=== PATIENT | male | born 1945 | race Caucasian/White ===

== ENCOUNTER 2017-10-05 10:54 | Inpatient (IN) ==
[2017-10-05] MEDS ORDERED: ACETAMINOPHEN 325 MG TABLET PO PRN (12:25)
[2017-10-05] MEDS ORDERED: ALBUTEROL 2.5 MG/3 ML NEB RESP TX PRN (12:29)
[2017-10-05] MEDS ORDERED: DEXTROSE 50% 25 GM/50 ML VIAL IV PRN (12:47)
[2017-10-05] MEDS ORDERED: GLUCAGON 1 MG VIAL IM PRN (12:47)
[2017-10-05] MEDS ORDERED: MORPHINE 4 MG/1 ML VIAL IV PRN (12:47)
[2017-10-05] MEDS ORDERED: ONDANSETRON 4 MG/2 ML VIAL IV PRN (12:48)
[2017-10-05] MEDS ORDERED: MAGNESIUM SULF RIDER 2 GM in PREMIX 1 EACH IV PRN (12:48)
[2017-10-05] MEDS ORDERED: MAGNESIUM SULF RIDER 4 GM in PREMIX 1 EACH IV PRN (12:48)
[2017-10-05] MEDS ORDERED: POTASSIUM CHLORIDE 20 MEQ TABLET PO PRN (12:48)
[2017-10-05] MEDS ORDERED: FUROSEMIDE 40 MG/4 ML VIAL IV SCH (13:00)
[2017-10-05 13:17] LABS: Basophils # 0.1 10*3/uL (0.0-0.2); Basophils % 0.2 % (0.0-0.8); Hematocrit 31.6 VOL% (42.0-52.0); Hemoglobin 10.6 GM/DL (14.0-18.0); Immature Granulocytes % 1.3 %; Immature Granulocytes Absolute 0.29 #; Lymphocytes # 0.7 10*3/uL (1.4-4.0); Mean Corpuscular HGB Conc 33.5 GM/DL (32-36); Mean Corpuscular Hemoglobin 32 PG (27-34); Mean Corpuscular Volume 96.3 FL (87-102); Mean Platelet Volume 10.2 FL (9.6-12.0); Monocytes % 8.8 % (1.7-12.7); Neutrophils # 19.7 10*3/uL (1.4-7.4); Neutrophils % 86.7 % (38.7-73.9); Platelet Count 288 T/CUMM (130-400); Red Blood Count 3.28 MC/CUMM (3.8-5.5); Red Cell Distribution Width 15.3 % (9.3-17.3); White Blood Count 22.7 T/CUMM (4-12)
[2017-10-05] MEDS: CARVEDILOL 3.125 MG TABLET PO SCH ×2 (13:27→20:30)
[2017-10-05] MEDS ORDERED: ASPIRIN CHEW 81 MG TABLET PO SCH (13:30)
[2017-10-05 13:35] LABS: Albumin 2.2 G/DL (3.4-5.0); Bilirubin,Total 2.1 MG/DL (0.2-1.0); Calcium 8.5 MG/DL (8.5-10.1); Potassium 3.7 MMOL/L (3.5-5.1); Total Protein 6.3 G/DL (6.4-8.3)
[2017-10-05 13:41] LABS: Lactic Acid 3.8 MMOL/L (0.4-2.0)
[2017-10-05 13:44] LABS: Apearance,Urine CLOUDY (Clear); Bacteria,Urine Few /HPF (Few); Bilirubin,Urine Small mg/dL (Negative); Blood, Urine Moderate mg/dL (Negative); Glucose,Urine (UA) 50 mg/dL (Negative); Hyaline Casts,Urine 24 /LPF (0-3); Ketones,Urine Negative (Negative); Mucus,Urine Occasional /LPF (Occasional); Nitrite,Urine Negative (Negative); Protein,Urine 100 MG/DL; RBC,Urine 90 /HPF (0-4); Urine Color Amber (Yellow); Urine Specific Gravity 1.019 (1.001-1.035); WBC,Urine 4 /HPF (0-6)
[2017-10-05] MEDS: PANTOPRAZOLE 40 MG VIAL IV SCH (13:46)
[2017-10-05] MEDS: LEVOFLOXACIN INJ 750 MG in PREMIX 1 EACH IV SCH (13:47)
[2017-10-05] MEDS: ENOXAPARIN 120 MG/0.8 ML SYRINGE SUBCUT SCH (13:47)
[2017-10-05] MEDS: ASPIRIN 325 MG TABLET PO SCH (13:47)
[2017-10-05] MEDS: ALBUTEROL/IPRATROPIUM 3 ML NEB RESP TX SCH ×2 (13:50→19:01)
[2017-10-05 13:57] LABS: ABG Base Excess -1.2 MMOL/L (-2.5-2.5); ABG HCO3 23.3 MMOL/L (20-26); ABG Oxygen Saturation 91.7 % (95-100); ABG PCO2 41.4 MM HG (35-48); ABG PH 7.371 (7.35-7.45); ABG PO2 67.3 MM HG (80-95); ABG TCO2 21.8 MMOL/L (23-27)
[2017-10-05] MEDS: INSULIN REGULAR 100 UNIT/ML SUBCUT SCH ×2 (15:56→20:36)
[2017-10-05] MEDS: FUROSEMIDE 40 MG/4 ML VIAL IV SCH ×2 (16:04→21:57)
[2017-10-05] MEDS: DOBUTamine 500 MG/250 ML PREMIX IV SCH (16:04)
[2017-10-05] MEDS: INSULIN LISPRO 100 UNIT/ML SUBCUT SCH (16:56)
[2017-10-05] MEDS: AZTREONAM 2,000 MG in SYRINGE 1 EACH IV SCH (17:20)
[2017-10-05] MEDS: NITROGLYCERIN 2% OINT 1 INCH/GM PACK TOP SCH ×2 (17:38→23:44)
[2017-10-05] MEDS: MORPHINE ER 15 MG TABLET PO SCH (20:54)
[2017-10-05] MEDS: sitaGLIPtin 25 MG TABLET PO SCH (20:54)
[2017-10-05] MEDS: GABAPENTIN 300 MG CAPSULE PO SCH (20:54)
[2017-10-05] MEDS: ROSUVASTATIN 20 MG TABLET PO SCH (20:54)
[2017-10-05] MEDS: metFORMIN 500 MG TABLET PO SCH (20:55)
[2017-10-05 20:59] LABS: Band Neutrophils 1 % (0-10); Lymphocytes 4 % (20-55); Platelet Estimate Normal; Segmented Neutrophils 93 % (50-85); Total Cells Counted 100
[2017-10-05] MEDS ORDERED: INSULIN GLARGINE 100 UNIT/ML SUBCUT SCH (21:00)
[2017-10-06] MEDS: AZTREONAM 2,000 MG in SYRINGE 1 EACH IV SCH ×3 (00:06→17:18)
[2017-10-06] MEDS: ALBUTEROL/IPRATROPIUM 3 ML NEB RESP TX SCH ×4 (00:16→18:59)
[2017-10-06] MEDS: ENOXAPARIN 120 MG/0.8 ML SYRINGE SUBCUT SCH ×2 (01:23→14:05)
[2017-10-06] MEDS: FUROSEMIDE 40 MG/4 ML VIAL IV SCH ×3 (04:16→21:57)
[2017-10-06] MEDS: DOBUTamine 500 MG/250 ML PREMIX IV SCH (04:16)
[2017-10-06] MEDS: NITROGLYCERIN 2% OINT 1 INCH/GM PACK TOP SCH ×3 (05:51→18:46)
[2017-10-06 06:36] LABS: Basophils % 0.2 % (0.0-0.8); Eosinophils % 0.2 % (0.00-10.9); Hematocrit 30.6 VOL% (42.0-52.0); Hemoglobin 10.2 GM/DL (14.0-18.0); Immature Granulocytes % 1.3 %; Immature Granulocytes Absolute 0.23 #; Lymphocytes # 0.8 10*3/uL (1.4-4.0); Lymphocytes % 4.4 % (21.2-54.2); Mean Corpuscular HGB Conc 33.3 GM/DL (32-36); Mean Corpuscular Hemoglobin 32 PG (27-34); Mean Platelet Volume 10.1 FL (9.6-12.0); Monocytes # 1.6 10*3/uL (0.11-0.8); Monocytes % 9.4 % (1.7-12.7); Neutrophils # 14.7 10*3/uL (1.4-7.4); Neutrophils % 84.5 % (38.7-73.9); Platelet Count 271 T/CUMM (130-400); Red Blood Count 3.22 MC/CUMM (3.8-5.5); Red Cell Distribution Width 15.3 % (9.3-17.3); White Blood Count 17.4 T/CUMM (4-12)
[2017-10-06 07:08] LABS: Calcium 8.1 MG/DL (8.5-10.1); Osmolality,Calculated 289.5 MOS/KG (273-304); Potassium 3.3 MMOL/L (3.5-5.1); Total Protein 5.9 G/DL (6.4-8.3)
[2017-10-06 07:09] LABS: Risk Ratio 9.19; VLDL CHOLESTEROL 29.4 MG/DL
[2017-10-06 07:10] LABS: Band Neutrophils 3 % (0-10); Lymphocytes 4 % (20-55); Segmented Neutrophils 88 % (50-85); Total Cells Counted 100
[2017-10-06 07:11] LABS: Hypochromasia 1+
[2017-10-06] MEDS: INSULIN LISPRO 100 UNIT/ML SUBCUT SCH ×2 (07:34→11:22)
[2017-10-06] MEDS: INSULIN REGULAR 100 UNIT/ML SUBCUT SCH ×4 (07:34→21:50)
[2017-10-06] MEDS ORDERED: hydroCHLOROthiazide 25 MG TABLET PO SCH (09:00)
[2017-10-06] MEDS ORDERED: DOXAZOSIN 1 MG TABLET PO SCH (09:00)
[2017-10-06] MEDS ORDERED: LOSARTAN 50 MG TABLET PO SCH (09:00)
[2017-10-06] MEDS: GABAPENTIN 300 MG CAPSULE PO SCH (09:37)
[2017-10-06] MEDS: MORPHINE ER 30 MG TABLET PO SCH (09:37)
[2017-10-06] MEDS: LEVOTHYROXINE 50 MCG TABLET PO SCH (09:38)
[2017-10-06] MEDS: PARoxetine 20 MG TABLET PO SCH (09:38)
[2017-10-06] MEDS: FOLIC ACID 1 MG TABLET PO SCH (09:38)
[2017-10-06] MEDS: ASPIRIN 325 MG TABLET PO SCH (09:38)
[2017-10-06] MEDS: metFORMIN 500 MG TABLET PO SCH (09:40)
[2017-10-06] MEDS: CARVEDILOL 3.125 MG TABLET PO SCH ×2 (09:41→22:52)
[2017-10-06] MEDS: BICALUTAMIDE 50 MG TABLET PO SCH (09:43)
[2017-10-06] MEDS: sitaGLIPtin 25 MG TABLET PO SCH (09:51)
[2017-10-06] MEDS: POTASSIUM CHLORIDE 20 MEQ TABLET PO PRN ×2 (11:00→11:54)
[2017-10-06] MEDS: PANTOPRAZOLE 40 MG VIAL IV SCH (12:36)
[2017-10-06] MEDS: LEVOFLOXACIN INJ 750 MG in PREMIX 1 EACH IV SCH (14:05)
[2017-10-06] MEDS: MORPHINE ER 15 MG TABLET PO SCH (21:56)
[2017-10-06] MEDS: ROSUVASTATIN 20 MG TABLET PO SCH (21:56)
[2017-10-07] MEDS: ALBUTEROL/IPRATROPIUM 3 ML NEB RESP TX SCH ×4 (00:38→19:21)
[2017-10-07] MEDS: AZTREONAM 2,000 MG in SYRINGE 1 EACH IV SCH ×2 (01:30→09:55)
[2017-10-07] MEDS: NITROGLYCERIN 2% OINT 1 INCH/GM PACK TOP SCH ×4 (01:30→18:08)
[2017-10-07] MEDS: ENOXAPARIN 120 MG/0.8 ML SYRINGE SUBCUT SCH ×2 (01:38→13:53)
[2017-10-07 02:52] LABS: ABG Base Excess -0.4 MMOL/L (-2.5-2.5); ABG Oxygen Saturation 94.1 % (95-100); ABG PH 7.358 (7.35-7.45); ABG PO2 73.9 MM HG (80-95); Allen Test Positive
[2017-10-07 05:47] LABS: Basophils % 0.2 % (0.0-0.8); Eosinophils # 0.1 10*3/uL (0.0-0.87); Eosinophils % 0.8 % (0.00-10.9); Hematocrit 30.3 VOL% (42.0-52.0); Hemoglobin 10.2 GM/DL (14.0-18.0); Immature Granulocytes % 1.1 %; Immature Granulocytes Absolute 0.14 #; Lymphocytes # 0.6 10*3/uL (1.4-4.0); Lymphocytes % 4.2 % (21.2-54.2); Mean Corpuscular HGB Conc 33.7 GM/DL (32-36); Mean Corpuscular Hemoglobin 32 PG (27-34); Mean Corpuscular Volume 95.3 FL (87-102); Mean Platelet Volume 10.3 FL (9.6-12.0); Monocytes # 1.2 10*3/uL (0.11-0.8); Monocytes % 9.1 % (1.7-12.7); Neutrophils % 84.6 % (38.7-73.9); Platelet Count 261 T/CUMM (130-400); Red Blood Count 3.18 MC/CUMM (3.8-5.5); Red Cell Distribution Width 15.3 % (9.3-17.3)
[2017-10-07 06:12] LABS: Hypochromasia 1+; Lymphocytes 2 % (20-55); Platelet Estimate Adequate; Segmented Neutrophils 95 % (50-85); Total Cells Counted 100
[2017-10-07 06:13] LABS: Calcium 7.7 MG/DL (8.5-10.1); Osmolality,Calculated 296.7 MOS/KG (273-304); Potassium 3.5 MMOL/L (3.5-5.1)
[2017-10-07] MEDS: INSULIN REGULAR 100 UNIT/ML SUBCUT SCH ×4 (08:18→22:27)
[2017-10-07] MEDS: MORPHINE ER 30 MG TABLET PO SCH (08:18)
[2017-10-07] MEDS: PARoxetine 20 MG TABLET PO SCH (11:14)
[2017-10-07] MEDS: FOLIC ACID 1 MG TABLET PO SCH (11:14)
[2017-10-07] MEDS: ASPIRIN 325 MG TABLET PO SCH (11:14)
[2017-10-07] MEDS: POTASSIUM CHLORIDE 20 MEQ TABLET PO SCH ×2 (11:14→22:09)
[2017-10-07] MEDS: LEVOTHYROXINE 50 MCG TABLET PO SCH (11:15)
[2017-10-07] MEDS: BICALUTAMIDE 50 MG TABLET PO SCH (11:15)
[2017-10-07] MEDS: CARVEDILOL 3.125 MG TABLET PO SCH ×2 (11:15→22:23)
[2017-10-07] MEDS: FUROSEMIDE 40 MG/4 ML VIAL IV SCH ×2 (11:15→22:10)
[2017-10-07] MEDS: PANTOPRAZOLE 40 MG VIAL IV SCH (11:54)
[2017-10-07] MEDS: cefTRIAXone 2,000 MG in SYRINGE 1 EACH IV SCH (12:00)
[2017-10-07] MEDS: LEVOFLOXACIN INJ 750 MG in PREMIX 1 EACH IV SCH (13:53)
[2017-10-07] MEDS ORDERED: ENOXAPARIN 40 MG/0.4 ML SYRINGE SUBCUT SCH (15:30)
[2017-10-07] MEDS: MORPHINE ER 15 MG TABLET PO SCH (22:10)
[2017-10-07] MEDS: POLYETHYLENE GLYCOL POWDER 17 GM PACK PO SCH (22:10)
[2017-10-07] MEDS: DOCUSATE SODIUM 100 MG CAPSULE PO SCH (22:10)
[2017-10-07] MEDS: ROSUVASTATIN 20 MG TABLET PO SCH (22:22)
[2017-10-08] MEDS: NITROGLYCERIN 2% OINT 1 INCH/GM PACK TOP SCH ×5 (00:08→23:32)
[2017-10-08] MEDS: ALBUTEROL/IPRATROPIUM 3 ML NEB RESP TX SCH ×4 (00:39→19:40)
[2017-10-08 03:24] LABS: ABG HCO3 25.3 MMOL/L (20-26); ABG Oxygen Saturation 96.7 % (95-100); ABG PH 7.358 (7.35-7.45); ABG PO2 89.7 MM HG (80-95); ABG TCO2 24.5 MMOL/L (23-27); Allen Test Positive
[2017-10-08 06:42] LABS: Calcium 7.9 MG/DL (8.5-10.1); Osmolality,Calculated 294.8 MOS/KG (273-304); Potassium 3.9 MMOL/L (3.5-5.1)
[2017-10-08] MEDS: INSULIN REGULAR 100 UNIT/ML SUBCUT SCH ×4 (08:22→20:44)
[2017-10-08] MEDS: POTASSIUM CHLORIDE 20 MEQ TABLET PO SCH ×2 (08:22→20:44)
[2017-10-08] MEDS: PARoxetine 20 MG TABLET PO SCH (08:22)
[2017-10-08] MEDS: LEVOTHYROXINE 50 MCG TABLET PO SCH (08:22)
[2017-10-08] MEDS: DOCUSATE SODIUM 100 MG CAPSULE PO SCH ×2 (08:22→20:45)
[2017-10-08] MEDS: FOLIC ACID 1 MG TABLET PO SCH (08:22)
[2017-10-08] MEDS: CARVEDILOL 3.125 MG TABLET PO SCH ×2 (08:22→20:45)
[2017-10-08] MEDS: ASPIRIN 325 MG TABLET PO SCH (08:22)
[2017-10-08] MEDS: BICALUTAMIDE 50 MG TABLET PO SCH (08:22)
[2017-10-08] MEDS: MORPHINE ER 30 MG TABLET PO SCH (08:23)
[2017-10-08] MEDS: FUROSEMIDE 40 MG/4 ML VIAL IV SCH ×2 (08:23→20:44)
[2017-10-08] MEDS: POLYETHYLENE GLYCOL POWDER 17 GM PACK PO SCH ×2 (08:34→20:44)
[2017-10-08] MEDS: methylPREDNISolone SOD SUC 40 MG/1 ML VIAL IV SCH ×2 (10:35→23:32)
[2017-10-08] MEDS: cefTRIAXone 2,000 MG in SYRINGE 1 EACH IV SCH (12:09)
[2017-10-08] MEDS: PANTOPRAZOLE 40 MG VIAL IV SCH (12:10)
[2017-10-08] MEDS: ENOXAPARIN 40 MG/0.4 ML SYRINGE SUBCUT SCH (14:13)
[2017-10-08] MEDS: LEVOFLOXACIN INJ 750 MG in PREMIX 1 EACH IV SCH (14:13)
[2017-10-08] MEDS: ROSUVASTATIN 20 MG TABLET PO SCH (20:44)
[2017-10-08] MEDS: MORPHINE ER 15 MG TABLET PO SCH (20:45)
[2017-10-09] MEDS: ALBUTEROL/IPRATROPIUM 3 ML NEB RESP TX SCH ×4 (01:22→19:38)
[2017-10-09 04:07] LABS: ABG HCO3 26.1 MMOL/L (20-26); ABG Oxygen Saturation 95.8 % (95-100); ABG PCO2 49.4 MM HG (35-48); ABG PH 7.368 (7.35-7.45); ABG PO2 83.9 MM HG (80-95); Pt O2 Delivery Device Venturi Mask
[2017-10-09 06:05] LABS: Basophils % 0.1 % (0.0-0.8); Hematocrit 32.4 VOL% (42.0-52.0); Hemoglobin 10.9 GM/DL (14.0-18.0); Immature Granulocytes % 0.7 %; Immature Granulocytes Absolute 0.08 #; Lymphocytes # 0.3 10*3/uL (1.4-4.0); Lymphocytes % 3.1 % (21.2-54.2); Mean Corpuscular HGB Conc 33.6 GM/DL (32-36); Mean Corpuscular Hemoglobin 32 PG (27-34); Mean Corpuscular Volume 93.9 FL (87-102); Mean Platelet Volume 10.5 FL (9.6-12.0); Monocytes # 0.4 10*3/uL (0.11-0.8); Monocytes % 3.3 % (1.7-12.7); Neutrophils # 10.2 10*3/uL (1.4-7.4); Neutrophils % 92.8 % (38.7-73.9); Platelet Count 336 T/CUMM (130-400); Red Blood Count 3.45 MC/CUMM (3.8-5.5); Red Cell Distribution Width 15.1 % (9.3-17.3)
[2017-10-09] MEDS: NITROGLYCERIN 2% OINT 1 INCH/GM PACK TOP SCH ×2 (06:18→12:09)
[2017-10-09 06:30] LABS: Band Neutrophils 2 % (0-10); Giant Platelets Few; Hypochromasia 1+; Lymphocytes 3 % (20-55); Ovalocytes Slight; Platelet Estimate Adequate; Segmented Neutrophils 94 % (50-85); Total Cells Counted 100
[2017-10-09 06:41] LABS: Calcium 8.3 MG/DL (8.5-10.1); Osmolality,Calculated 309.8 MOS/KG (273-304); Potassium 4.4 MMOL/L (3.5-5.1)
[2017-10-09] MEDS: INSULIN REGULAR 100 UNIT/ML SUBCUT SCH ×5 (08:05→21:20)
[2017-10-09] MEDS: FOLIC ACID 1 MG TABLET PO SCH (08:06)
[2017-10-09] MEDS: PARoxetine 20 MG TABLET PO SCH (08:06)
[2017-10-09] MEDS: POTASSIUM CHLORIDE 20 MEQ TABLET PO SCH ×2 (08:06→21:22)
[2017-10-09] MEDS: CARVEDILOL 3.125 MG TABLET PO SCH ×2 (08:06→21:22)
[2017-10-09] MEDS: DOCUSATE SODIUM 100 MG CAPSULE PO SCH ×2 (08:06→21:22)
[2017-10-09] MEDS: BICALUTAMIDE 50 MG TABLET PO SCH (08:06)
[2017-10-09] MEDS: POLYETHYLENE GLYCOL POWDER 17 GM PACK PO SCH ×2 (08:06→21:32)
[2017-10-09] MEDS: LEVOTHYROXINE 50 MCG TABLET PO SCH (08:06)
[2017-10-09] MEDS: MORPHINE ER 30 MG TABLET PO SCH (08:06)
[2017-10-09] MEDS: ASPIRIN 325 MG TABLET PO SCH (08:06)
[2017-10-09] MEDS: FUROSEMIDE 40 MG/4 ML VIAL IV SCH ×2 (08:28→21:26)
[2017-10-09] MEDS: methylPREDNISolone SOD SUC 40 MG/1 ML VIAL IV SCH ×2 (11:15→22:05)
[2017-10-09] MEDS: cefTRIAXone 2,000 MG in SYRINGE 1 EACH IV SCH (11:15)
[2017-10-09] MEDS: MUPIROCIN 2% OINT 22 GM TUBE TOP SCH ×3 (11:15→21:32)
[2017-10-09] MEDS ORDERED: INSULIN NPH 100 UNIT/ML SUBCUT SCH (12:00)
[2017-10-09] MEDS: PANTOPRAZOLE 40 MG VIAL IV SCH (12:09)
[2017-10-09] MEDS: LEVOFLOXACIN INJ 750 MG in PREMIX 1 EACH IV SCH (14:28)
[2017-10-09] MEDS: NYSTATIN POWDER 15 GM BOTTLE TOP SCH ×2 (15:24→21:32)
[2017-10-09] MEDS: ENOXAPARIN 40 MG/0.4 ML SYRINGE SUBCUT SCH (15:24)
[2017-10-09] MEDS: ISOSORBIDE MONONITRATE 30 MG TABLET PO SCH (15:24)
[2017-10-09] MEDS: diphenhydrAMINE CAP 25 MG CAPSULE PO PRN ×2 (15:24→21:22)
[2017-10-09] MEDS ORDERED: LORazepam 2 MG/1 ML VIAL IV ONE (17:39)
[2017-10-09] MEDS ORDERED: LORazepam 2 MG/1 ML VIAL ONE (17:44)
[2017-10-09] MEDS: INSULIN GLARGINE 100 UNIT/ML SUBCUT SCH (21:20)
[2017-10-09] MEDS: DOXYCYCLINE HYCLATE 100 MG CAPSULE PO SCH (21:21)
[2017-10-09] MEDS: MORPHINE ER 15 MG TABLET PO SCH (21:22)
[2017-10-09] MEDS: ROSUVASTATIN 20 MG TABLET PO SCH (21:22)
[2017-10-10] MEDS: ALBUTEROL/IPRATROPIUM 3 ML NEB RESP TX SCH ×4 (00:35→18:49)
[2017-10-10 04:29] LABS: Allen Test Positive
[2017-10-10 04:33] LABS: ABG HCO3 31.7 MMOL/L (20-26); ABG Oxygen Saturation 92.7 % (95-100); ABG PCO2 51.3 MM HG (35-48); ABG PH 7.409 (7.35-7.45); ABG PO2 69.7 MM HG (80-95); ABG TCO2 33.3 MMOL/L (23-27)
[2017-10-10 06:30] LABS: Basophils % 0.2 % (0.0-0.8); Eosinophils # 0.1 10*3/uL (0.0-0.87); Eosinophils % 0.8 % (0.00-10.9); Hematocrit 31.9 VOL% (42.0-52.0); Hemoglobin 10.6 GM/DL (14.0-18.0); Immature Granulocytes % 0.8 %; Immature Granulocytes Absolute 0.09 #; Lymphocytes # 0.6 10*3/uL (1.4-4.0); Lymphocytes % 5.3 % (21.2-54.2); Mean Corpuscular HGB Conc 33.2 GM/DL (32-36); Mean Corpuscular Hemoglobin 32 PG (27-34); Mean Corpuscular Volume 94.7 FL (87-102); Monocytes % 9.1 % (1.7-12.7); Neutrophils # 9.1 10*3/uL (1.4-7.4); Neutrophils % 83.8 % (38.7-73.9); Platelet Count 327 T/CUMM (130-400); Red Blood Count 3.37 MC/CUMM (3.8-5.5); Red Cell Distribution Width 15.4 % (9.3-17.3); White Blood Count 10.8 T/CUMM (4-12)
[2017-10-10 06:58] LABS: Calcium 8.6 MG/DL (8.5-10.1); Osmolality,Calculated 311.3 MOS/KG (273-304); Potassium 4.2 MMOL/L (3.5-5.1)
[2017-10-10] MEDS: POTASSIUM CHLORIDE 20 MEQ TABLET PO SCH ×2 (08:45→20:46)
[2017-10-10] MEDS: FOLIC ACID 1 MG TABLET PO SCH (08:45)
[2017-10-10] MEDS: methylPREDNISolone SOD SUC 40 MG/1 ML VIAL IV SCH ×2 (08:45→20:44)
[2017-10-10] MEDS: ASPIRIN 325 MG TABLET PO SCH (08:45)
[2017-10-10] MEDS: LEVOTHYROXINE 50 MCG TABLET PO SCH (08:45)
[2017-10-10] MEDS: DOCUSATE SODIUM 100 MG CAPSULE PO SCH ×2 (08:45→20:46)
[2017-10-10] MEDS: MORPHINE ER 30 MG TABLET PO SCH (08:45)
[2017-10-10] MEDS: BICALUTAMIDE 50 MG TABLET PO SCH (08:45)
[2017-10-10] MEDS: POLYETHYLENE GLYCOL POWDER 17 GM PACK PO SCH ×2 (08:46→20:46)
[2017-10-10] MEDS: PARoxetine 20 MG TABLET PO SCH (08:46)
[2017-10-10] MEDS: NYSTATIN POWDER 15 GM BOTTLE TOP SCH ×2 (08:46→22:20)
[2017-10-10] MEDS: MUPIROCIN 2% OINT 22 GM TUBE TOP SCH ×3 (08:46→22:19)
[2017-10-10] MEDS: DOXYCYCLINE HYCLATE 100 MG CAPSULE PO SCH ×2 (08:46→20:46)
[2017-10-10] MEDS: INSULIN REGULAR 100 UNIT/ML SUBCUT SCH ×4 (08:46→20:45)
[2017-10-10] MEDS: ISOSORBIDE MONONITRATE 30 MG TABLET PO SCH (08:46)
[2017-10-10] MEDS: FUROSEMIDE 40 MG/4 ML VIAL IV SCH ×2 (08:47→20:44)
[2017-10-10] MEDS: CARVEDILOL 6.25 MG TABLET PO SCH ×2 (09:01→16:54)
[2017-10-10] MEDS: cefTRIAXone 2,000 MG in SYRINGE 1 EACH IV SCH (10:38)
[2017-10-10] MEDS: PANTOPRAZOLE 40 MG VIAL IV SCH (11:59)
[2017-10-10] MEDS: ENOXAPARIN 40 MG/0.4 ML SYRINGE SUBCUT SCH (14:34)
[2017-10-10] MEDS: INSULIN GLARGINE 100 UNIT/ML SUBCUT SCH (20:45)
[2017-10-10] MEDS: MORPHINE ER 15 MG TABLET PO SCH (20:46)
[2017-10-10] MEDS: ROSUVASTATIN 20 MG TABLET PO SCH (20:46)
[2017-10-10] MEDS: LORazepam 2 MG/1 ML VIAL IV PRN (23:20)
[2017-10-11] MEDS: ALBUTEROL/IPRATROPIUM 3 ML NEB RESP TX SCH ×4 (00:38→19:12)
[2017-10-11 03:58] LABS: ABG Base Excess 7.1 MMOL/L (-2.5-2.5); ABG HCO3 30.7 MMOL/L (20-26); ABG Oxygen Saturation 89.4 % (95-100); ABG PCO2 51.4 MM HG (35-48); ABG PH 7.415 (7.35-7.45); ABG PO2 58.8 MM HG (80-95); ABG TCO2 29.7 MMOL/L (23-27); Allen Test Positive
[2017-10-11 04:38] LABS: Basophils % 0.2 % (0.0-0.8); Eosinophils # 0.2 10*3/uL (0.0-0.87); Eosinophils % 1.5 % (0.00-10.9); Hemoglobin 11.1 GM/DL (14.0-18.0); Immature Granulocytes Absolute 0.11 #; Lymphocytes # 0.6 10*3/uL (1.4-4.0); Lymphocytes % 5.2 % (21.2-54.2); Mean Corpuscular HGB Conc 33.6 GM/DL (32-36); Mean Corpuscular Hemoglobin 31 PG (27-34); Mean Corpuscular Volume 93.5 FL (87-102); Mean Platelet Volume 10.4 FL (9.6-12.0); Monocytes # 1.1 10*3/uL (0.11-0.8); Monocytes % 10.6 % (1.7-12.7); Neutrophils # 8.7 10*3/uL (1.4-7.4); Neutrophils % 81.5 % (38.7-73.9); Platelet Count 341 T/CUMM (130-400); Red Blood Count 3.53 MC/CUMM (3.8-5.5); Red Cell Distribution Width 15.3 % (9.3-17.3); White Blood Count 10.6 T/CUMM (4-12)
[2017-10-11 05:23] LABS: Calcium 8.8 MG/DL (8.5-10.1); Osmolality,Calculated 313.8 MOS/KG (273-304); Potassium 4.1 MMOL/L (3.5-5.1)
[2017-10-11 05:24] LABS: Albumin 2.2 G/DL (3.4-5.0); Bilirubin,Total 0.9 MG/DL (0.2-1.0); Calcium 8.7 MG/DL (8.5-10.1); Potassium 4.1 MMOL/L (3.5-5.1); Total Protein 6.8 G/DL (6.4-8.3)
[2017-10-11] MEDS: DOCUSATE SODIUM 100 MG CAPSULE PO SCH ×2 (10:19→22:01)
[2017-10-11] MEDS: POLYETHYLENE GLYCOL POWDER 17 GM PACK PO SCH ×2 (10:19→22:02)
[2017-10-11] MEDS: cefTRIAXone 2,000 MG in SYRINGE 1 EACH IV SCH (10:20)
[2017-10-11] MEDS: CARVEDILOL 6.25 MG TABLET PO SCH ×2 (10:22→17:16)
[2017-10-11] MEDS: DOXYCYCLINE HYCLATE 100 MG CAPSULE PO SCH (10:22)
[2017-10-11] MEDS: ASPIRIN 325 MG TABLET PO SCH (10:22)
[2017-10-11] MEDS: PARoxetine 20 MG TABLET PO SCH (10:23)
[2017-10-11] MEDS: LEVOTHYROXINE 50 MCG TABLET PO SCH (10:23)
[2017-10-11] MEDS: FOLIC ACID 1 MG TABLET PO SCH (10:23)
[2017-10-11] MEDS: ISOSORBIDE MONONITRATE 30 MG TABLET PO SCH (10:23)
[2017-10-11] MEDS: BICALUTAMIDE 50 MG TABLET PO SCH (10:23)
[2017-10-11] MEDS: POTASSIUM CHLORIDE 20 MEQ TABLET PO SCH ×2 (10:23→22:02)
[2017-10-11] MEDS: NYSTATIN POWDER 15 GM BOTTLE TOP SCH ×2 (10:24→21:56)
[2017-10-11] MEDS: MUPIROCIN 2% OINT 22 GM TUBE TOP SCH ×3 (10:24→21:57)
[2017-10-11] MEDS: MORPHINE ER 30 MG TABLET PO SCH (10:26)
[2017-10-11] MEDS: FUROSEMIDE 40 MG/4 ML VIAL IV SCH ×2 (10:29→21:13)
[2017-10-11] MEDS: INSULIN REGULAR 100 UNIT/ML SUBCUT SCH ×4 (10:29→21:56)
[2017-10-11] MEDS: methylPREDNISolone SOD SUC 40 MG/1 ML VIAL IV SCH ×2 (10:34→21:17)
[2017-10-11] MEDS: PANTOPRAZOLE 40 MG VIAL IV SCH (13:13)
[2017-10-11] MEDS: LORazepam 2 MG/1 ML VIAL IV PRN (14:21)
[2017-10-11] MEDS ORDERED: HALOPERIDOL 5 MG/ML AMP IM ONE (17:39)
[2017-10-11] MEDS: INSULIN GLARGINE 100 UNIT/ML SUBCUT SCH (21:55)
[2017-10-11] MEDS: MORPHINE ER 15 MG TABLET PO SCH (22:01)
[2017-10-11] MEDS: ROSUVASTATIN 20 MG TABLET PO SCH (22:02)
[2017-10-12] MEDS: ALBUTEROL/IPRATROPIUM 3 ML NEB RESP TX SCH ×4 (00:08→19:04)
[2017-10-12 03:55] LABS: ABG Base Excess 9.7 MMOL/L (-2.5-2.5); ABG HCO3 33.2 MMOL/L (20-26); ABG Oxygen Saturation 85.2 % (95-100); ABG PCO2 45.2 MM HG (35-48); ABG PH 7.489 (7.35-7.45); ABG TCO2 30.5 MMOL/L (23-27)
[2017-10-12 05:38] LABS: Basophils % 0.3 % (0.0-0.8); Eosinophils # 0.1 10*3/uL (0.0-0.87); Eosinophils % 0.7 % (0.00-10.9); Hematocrit 34.7 VOL% (42.0-52.0); Hemoglobin 11.7 GM/DL (14.0-18.0); Immature Granulocytes % 1.3 %; Immature Granulocytes Absolute 0.12 #; Lymphocytes # 0.8 10*3/uL (1.4-4.0); Mean Corpuscular HGB Conc 33.7 GM/DL (32-36); Mean Corpuscular Hemoglobin 32 PG (27-34); Mean Corpuscular Volume 93.8 FL (87-102); Mean Platelet Volume 10.5 FL (9.6-12.0); Monocytes # 0.8 10*3/uL (0.11-0.8); Monocytes % 9.2 % (1.7-12.7); Neutrophils # 7.2 10*3/uL (1.4-7.4); Neutrophils % 79.5 % (38.7-73.9); Platelet Count 304 T/CUMM (130-400); Red Cell Distribution Width 15.2 % (9.3-17.3); White Blood Count 9.1 T/CUMM (4-12)
[2017-10-12 06:10] LABS: Calcium 8.6 MG/DL (8.5-10.1); Osmolality,Calculated 316.7 MOS/KG (273-304); Potassium 3.9 MMOL/L (3.5-5.1)
[2017-10-12] MEDS ORDERED: INSULIN GLARGINE 100 UNIT/ML SUBCUT SCH (07:59)
[2017-10-12] MEDS: ISOSORBIDE MONONITRATE 30 MG TABLET PO SCH (09:42)
[2017-10-12] MEDS: BICALUTAMIDE 50 MG TABLET PO SCH (09:42)
[2017-10-12] MEDS: FOLIC ACID 1 MG TABLET PO SCH (09:42)
[2017-10-12] MEDS: PARoxetine 20 MG TABLET PO SCH (09:43)
[2017-10-12] MEDS: ASPIRIN 325 MG TABLET PO SCH (09:44)
[2017-10-12] MEDS: CARVEDILOL 6.25 MG TABLET PO SCH (09:44)
[2017-10-12] MEDS: MAGNESIUM OXIDE 400 MG TABLET PO SCH ×2 (09:45→22:00)
[2017-10-12] MEDS: LEVOTHYROXINE 50 MCG TABLET PO SCH (09:47)
[2017-10-12] MEDS: POLYETHYLENE GLYCOL POWDER 17 GM PACK PO SCH ×2 (09:47→22:01)
[2017-10-12] MEDS: DOCUSATE SODIUM 100 MG CAPSULE PO SCH ×2 (09:47→21:57)
[2017-10-12] MEDS: AZITHROMYCIN 250 MG TABLET PO SCH (09:48)
[2017-10-12] MEDS: POTASSIUM CHLORIDE 20 MEQ TABLET PO SCH ×2 (09:48→21:59)
[2017-10-12] MEDS: MORPHINE ER 30 MG TABLET PO SCH (09:50)
[2017-10-12] MEDS: INSULIN REGULAR 100 UNIT/ML SUBCUT SCH ×4 (09:51→21:58)
[2017-10-12] MEDS: methylPREDNISolone SOD SUC 40 MG/1 ML VIAL IV SCH (09:55)
[2017-10-12] MEDS: FUROSEMIDE 40 MG/4 ML VIAL IV SCH ×2 (09:55→20:37)
[2017-10-12] MEDS: MUPIROCIN 2% OINT 22 GM TUBE TOP SCH ×3 (10:00→21:44)
[2017-10-12] MEDS: ACYCLOVIR 5% OINT 5 GM TUBE TOP SCH ×4 (12:41→21:57)
[2017-10-12] MEDS: predniSONE 20 MG TABLET PO SCH (13:10)
[2017-10-12] MEDS: NYSTATIN POWDER 15 GM BOTTLE TOP SCH ×2 (13:10→21:57)
[2017-10-12] MEDS: LOSARTAN/HCTZ 50-12.5 MG TABLET PO SCH (18:13)
[2017-10-12] MEDS: ROSUVASTATIN 20 MG TABLET PO SCH (21:58)
[2017-10-12] MEDS: INSULIN GLARGINE 100 UNIT/ML SUBCUT SCH (21:59)
[2017-10-12] MEDS: MORPHINE ER 15 MG TABLET PO SCH (22:00)
[2017-10-13] MEDS: ALBUTEROL/IPRATROPIUM 3 ML NEB RESP TX SCH ×4 (00:06→19:29)
[2017-10-13] MEDS ORDERED: INSULIN REGULAR 100 UNIT/ML SUBCUT ONE (01:09)
[2017-10-13] MEDS: ACYCLOVIR 5% OINT 5 GM TUBE TOP SCH ×4 (07:26→17:31)
[2017-10-13 07:30] LABS: Basophils % 0.2 % (0.0-0.8); Eosinophils # 0.5 10*3/uL (0.0-0.87); Eosinophils % 3.8 % (0.00-10.9); Hematocrit 34.3 VOL% (42.0-52.0); Hemoglobin 11.9 GM/DL (14.0-18.0); Immature Granulocytes % 1.5 %; Immature Granulocytes Absolute 0.18 #; Lymphocytes # 1.3 10*3/uL (1.4-4.0); Lymphocytes % 10.6 % (21.2-54.2); Mean Corpuscular HGB Conc 34.7 GM/DL (32-36); Mean Corpuscular Hemoglobin 31 PG (27-34); Mean Corpuscular Volume 89.3 FL (87-102); Mean Platelet Volume 10.4 FL (9.6-12.0); Monocytes # 1.5 10*3/uL (0.11-0.8); Neutrophils # 8.9 10*3/uL (1.4-7.4); Neutrophils % 71.9 % (38.7-73.9); Platelet Count 315 T/CUMM (130-400); Red Blood Count 3.84 MC/CUMM (3.8-5.5); Red Cell Distribution Width 14.7 % (9.3-17.3); White Blood Count 12.4 T/CUMM (4-12)
[2017-10-13 07:57] LABS: Calcium 8.5 MG/DL (8.5-10.1); Osmolality,Calculated 295.8 MOS/KG (273-304); Potassium 3.4 MMOL/L (3.5-5.1)
[2017-10-13] MEDS: INSULIN REGULAR 100 UNIT/ML SUBCUT SCH ×4 (09:25→22:17)
[2017-10-13] MEDS: NYSTATIN POWDER 15 GM BOTTLE TOP SCH ×2 (09:25→22:19)
[2017-10-13] MEDS: FUROSEMIDE 40 MG/4 ML VIAL IV SCH ×2 (09:26→22:15)
[2017-10-13] MEDS: MAGNESIUM OXIDE 400 MG TABLET PO SCH ×2 (09:33→22:19)
[2017-10-13] MEDS: PARoxetine 20 MG TABLET PO SCH (09:33)
[2017-10-13] MEDS: ISOSORBIDE MONONITRATE 30 MG TABLET PO SCH (09:33)
[2017-10-13] MEDS: PANTOPRAZOLE 40 MG TABLET PO SCH (09:33)
[2017-10-13] MEDS: MORPHINE ER 30 MG TABLET PO SCH (09:33)
[2017-10-13] MEDS: predniSONE 20 MG TABLET PO SCH (09:33)
[2017-10-13] MEDS: POTASSIUM CHLORIDE 20 MEQ TABLET PO SCH ×2 (09:33→22:16)
[2017-10-13] MEDS: DOCUSATE SODIUM 100 MG CAPSULE PO SCH ×2 (09:33→22:16)
[2017-10-13] MEDS: LEVOTHYROXINE 50 MCG TABLET PO SCH (09:34)
[2017-10-13] MEDS: POLYETHYLENE GLYCOL POWDER 17 GM PACK PO SCH ×2 (09:34→22:20)
[2017-10-13] MEDS: AZITHROMYCIN 250 MG TABLET PO SCH (09:34)
[2017-10-13] MEDS: LOSARTAN/HCTZ 50-12.5 MG TABLET PO SCH (09:34)
[2017-10-13] MEDS: BICALUTAMIDE 50 MG TABLET PO SCH (09:34)
[2017-10-13] MEDS: FOLIC ACID 1 MG TABLET PO SCH (09:34)
[2017-10-13] MEDS: ASPIRIN 325 MG TABLET PO SCH (09:34)
[2017-10-13] MEDS: MUPIROCIN 2% OINT 22 GM TUBE TOP SCH ×3 (09:34→22:20)
[2017-10-13] MEDS ORDERED: ZINC OXIDE PASTE 113 GM TUBE TOP PRN (14:00)
[2017-10-13] MEDS: hydrALAZINE 25 MG TABLET PO SCH ×2 (16:06→22:17)
[2017-10-13] MEDS ORDERED: glipiZIDE 5 MG TABLET PO SCH (16:30)
[2017-10-13] MEDS: metFORMIN 500 MG TABLET PO SCH (17:31)
[2017-10-13] MEDS: ROSUVASTATIN 20 MG TABLET PO SCH (22:16)
[2017-10-13] MEDS: sitaGLIPtin 25 MG TABLET PO SCH (22:16)
[2017-10-13] MEDS: diphenhydrAMINE CAP 25 MG CAPSULE PO PRN (22:16)
[2017-10-13] MEDS: INSULIN GLARGINE 100 UNIT/ML SUBCUT SCH (22:19)
[2017-10-14] MEDS: ALBUTEROL/IPRATROPIUM 3 ML NEB RESP TX SCH ×4 (00:40→19:26)
[2017-10-14] MEDS ORDERED: ZIPRASIDONE 20 MG/1 ML VIAL IM ONE (02:00)
[2017-10-14] MEDS: LORazepam 2 MG/1 ML VIAL IV PRN ×2 (03:29→22:27)
[2017-10-14] MEDS: ACYCLOVIR 5% OINT 5 GM TUBE TOP SCH ×6 (03:30→22:54)
[2017-10-14 07:43] LABS: Basophils % 0.2 % (0.0-0.8); Eosinophils # 0.5 10*3/uL (0.0-0.87); Eosinophils % 3.7 % (0.00-10.9); Hematocrit 33.6 VOL% (42.0-52.0); Hemoglobin 11.9 GM/DL (14.0-18.0); Immature Granulocytes % 1.3 %; Immature Granulocytes Absolute 0.17 #; Lymphocytes # 1.4 10*3/uL (1.4-4.0); Lymphocytes % 10.7 % (21.2-54.2); Mean Corpuscular HGB Conc 35.4 GM/DL (32-36); Mean Corpuscular Hemoglobin 32 PG (27-34); Mean Corpuscular Volume 89.1 FL (87-102); Mean Platelet Volume 10.6 FL (9.6-12.0); Monocytes # 1.4 10*3/uL (0.11-0.8); Monocytes % 10.6 % (1.7-12.7); Neutrophils # 9.5 10*3/uL (1.4-7.4); Neutrophils % 73.5 % (38.7-73.9); Platelet Count 293 T/CUMM (130-400); Red Blood Count 3.77 MC/CUMM (3.8-5.5); Red Cell Distribution Width 14.6 % (9.3-17.3)
[2017-10-14 08:12] LABS: Calcium 8.4 MG/DL (8.5-10.1); Osmolality,Calculated 296.7 MOS/KG (273-304); Potassium 2.7 MMOL/L (3.5-5.1)
[2017-10-14] MEDS: INSULIN REGULAR 100 UNIT/ML SUBCUT SCH ×4 (09:58→20:39)
[2017-10-14] MEDS: LOSARTAN/HCTZ 50-12.5 MG TABLET PO SCH (09:59)
[2017-10-14] MEDS: sitaGLIPtin 25 MG TABLET PO SCH (09:59)
[2017-10-14] MEDS: BICALUTAMIDE 50 MG TABLET PO SCH (09:59)
[2017-10-14] MEDS: LEVOTHYROXINE 50 MCG TABLET PO SCH (09:59)
[2017-10-14] MEDS: metFORMIN 500 MG TABLET PO SCH ×2 (09:59→16:51)
[2017-10-14] MEDS: PARoxetine 20 MG TABLET PO SCH (09:59)
[2017-10-14] MEDS: AZITHROMYCIN 250 MG TABLET PO SCH (09:59)
[2017-10-14] MEDS: ASPIRIN 325 MG TABLET PO SCH (09:59)
[2017-10-14] MEDS: hydrALAZINE 25 MG TABLET PO SCH ×2 (09:59→20:39)
[2017-10-14] MEDS: MORPHINE ER 30 MG TABLET PO SCH (09:59)
[2017-10-14] MEDS: POTASSIUM CHLORIDE 20 MEQ TABLET PO SCH ×5 (10:00→22:27)
[2017-10-14] MEDS: MUPIROCIN 2% OINT 22 GM TUBE TOP SCH ×3 (10:00→20:46)
[2017-10-14] MEDS: predniSONE 20 MG TABLET PO SCH (10:00)
[2017-10-14] MEDS: MAGNESIUM OXIDE 400 MG TABLET PO SCH ×2 (10:00→20:39)
[2017-10-14] MEDS: ISOSORBIDE MONONITRATE 30 MG TABLET PO SCH (10:00)
[2017-10-14] MEDS: FOLIC ACID 1 MG TABLET PO SCH (10:01)
[2017-10-14] MEDS: PANTOPRAZOLE 40 MG TABLET PO SCH (10:01)
[2017-10-14] MEDS: NYSTATIN POWDER 15 GM BOTTLE TOP SCH ×2 (10:01→20:46)
[2017-10-14] MEDS: POLYETHYLENE GLYCOL POWDER 17 GM PACK PO SCH ×2 (10:01→20:43)
[2017-10-14] MEDS: DOCUSATE SODIUM 100 MG CAPSULE PO SCH ×2 (10:01→20:39)
[2017-10-14] MEDS: FUROSEMIDE 40 MG/4 ML VIAL IV SCH (10:02)
[2017-10-14] MEDS ORDERED: POTASSIUM CHLORIDE 20 MEQ TABLET PO ONE (11:00)
[2017-10-14] MEDS: FUROSEMIDE 40 MG TABLET PO SCH (16:11)
[2017-10-14] MEDS: INSULIN GLARGINE 100 UNIT/ML SUBCUT SCH (20:39)
[2017-10-14] MEDS ORDERED: ROSUVASTATIN 20 MG TABLET PO SCH (21:00)
[2017-10-14] MEDS ORDERED: DONEPEZIL 5 MG TABLET PO SCH (21:00)
[2017-10-15] MEDS: ALBUTEROL/IPRATROPIUM 3 ML NEB RESP TX SCH ×2 (00:12→07:33)
[2017-10-15] MEDS: POTASSIUM CHLORIDE 20 MEQ TABLET PO SCH ×3 (03:28→08:35)
[2017-10-15] MEDS: ACYCLOVIR 5% OINT 5 GM TUBE TOP SCH ×2 (06:23→11:39)
[2017-10-15 06:59] LABS: Basophils # 0.1 10*3/uL (0.0-0.2); Basophils % 0.3 % (0.0-0.8); Eosinophils # 0.4 10*3/uL (0.0-0.87); Eosinophils % 1.8 % (0.00-10.9); Hematocrit 35.6 VOL% (42.0-52.0); Hemoglobin 12.1 GM/DL (14.0-18.0); Immature Granulocytes % 1.3 %; Lymphocytes # 1.9 10*3/uL (1.4-4.0); Lymphocytes % 8.5 % (21.2-54.2); Mean Corpuscular Hemoglobin 31 PG (27-34); Mean Corpuscular Volume 90.8 FL (87-102); Mean Platelet Volume 10.5 FL (9.6-12.0); Monocytes # 2.1 10*3/uL (0.11-0.8); Monocytes % 9.1 % (1.7-12.7); Neutrophils # 17.7 10*3/uL (1.4-7.4); Platelet Count 375 T/CUMM (130-400); Red Blood Count 3.92 MC/CUMM (3.8-5.5); White Blood Count 22.5 T/CUMM (4-12)
[2017-10-15 07:11] LABS: Band Neutrophils 1 % (0-10); Eosinophils 2 % (0-10); Giant Platelets Few; Hypochromasia 1+; Lymphocytes 7 % (20-55); Platelet Estimate Adequate; Segmented Neutrophils 84 % (50-85); Total Cells Counted 100
[2017-10-15 07:32] LABS: Calcium 8.5 MG/DL (8.5-10.1); Osmolality,Calculated 285.8 MOS/KG (273-304); Potassium 3.4 MMOL/L (3.5-5.1)
[2017-10-15] MEDS: LOSARTAN/HCTZ 50-12.5 MG TABLET PO SCH (08:33)
[2017-10-15] MEDS: AZITHROMYCIN 250 MG TABLET PO SCH (08:33)
[2017-10-15] MEDS: ISOSORBIDE MONONITRATE 30 MG TABLET PO SCH (08:34)
[2017-10-15] MEDS: sitaGLIPtin 25 MG TABLET PO SCH (08:34)
[2017-10-15] MEDS: FUROSEMIDE 40 MG TABLET PO SCH (08:34)
[2017-10-15] MEDS: BICALUTAMIDE 50 MG TABLET PO SCH (08:34)
[2017-10-15] MEDS: DOCUSATE SODIUM 100 MG CAPSULE PO SCH (08:34)
[2017-10-15] MEDS: PANTOPRAZOLE 40 MG TABLET PO SCH (08:34)
[2017-10-15] MEDS: metFORMIN 500 MG TABLET PO SCH (08:34)
[2017-10-15] MEDS: MAGNESIUM OXIDE 400 MG TABLET PO SCH (08:35)
[2017-10-15] MEDS: LEVOTHYROXINE 50 MCG TABLET PO SCH (08:35)
[2017-10-15] MEDS: PARoxetine 20 MG TABLET PO SCH (08:35)
[2017-10-15] MEDS: predniSONE 20 MG TABLET PO SCH (08:36)
[2017-10-15] MEDS: MORPHINE ER 30 MG TABLET PO SCH (08:36)
[2017-10-15] MEDS: INSULIN REGULAR 100 UNIT/ML SUBCUT SCH ×2 (08:37→11:37)
[2017-10-15] MEDS: FOLIC ACID 1 MG TABLET PO SCH (08:37)
[2017-10-15] MEDS: ASPIRIN 325 MG TABLET PO SCH (08:37)
[2017-10-15] MEDS: POLYETHYLENE GLYCOL POWDER 17 GM PACK PO SCH (08:37)
[2017-10-15] MEDS: hydrALAZINE 25 MG TABLET PO SCH (08:40)
[2017-10-15] MEDS: MUPIROCIN 2% OINT 22 GM TUBE TOP SCH (08:45)
[2017-10-15] MEDS: NYSTATIN POWDER 15 GM BOTTLE TOP SCH (08:45)
[2017-10-15 11:53] VITALS: BP 135/66
== END 2017-10-15 14:38 | disposition swing bed (61) | DRG 291 ==
LOC: N.ICU 12:22 → SUATTDRO 12:22 → N.2E 10-09 16:09
PROVIDERS: ADMIT Internal Medicine; ATTEND Internal Medicine

== ENCOUNTER 2018-01-15 00:03 | Inpatient (IN) ==
[2018-01-15] MEDS ORDERED: FUROSEMIDE 40 MG/4 ML VIAL IV STA (02:09)
[2018-01-15] MEDS ORDERED: ALBUTEROL/IPRATROPIUM 3 ML NEB RESP TX STA (02:10)
[2018-01-15 02:22] LABS: Basophils % 0.1 % (0.0-0.8); Eosinophils % 0.1 % (0.00-10.9); Hematocrit 28.7 VOL% (42.0-52.0); Hemoglobin 9.5 GM/DL (14.0-18.0); Immature Granulocytes % 1.9 %; Immature Granulocytes Absolute 0.37 #; Lymphocytes # 0.6 10*3/uL (1.4-4.0); Lymphocytes % 3.2 % (21.2-54.2); Mean Corpuscular HGB Conc 33.1 GM/DL (32-36); Mean Corpuscular Hemoglobin 28 PG (27-34); Mean Corpuscular Volume 85.4 FL (87-102); Mean Platelet Volume 10.1 FL (9.6-12.0); Monocytes # 2.1 10*3/uL (0.11-0.8); Neutrophils % 83.7 % (38.7-73.9); Platelet Count 240 T/CUMM (130-400); Red Blood Count 3.36 MC/CUMM (3.8-5.5); White Blood Count 19.1 T/CUMM (4-12)
[2018-01-15 02:37] LABS: Albumin 1.5 G/DL (3.4-5.0); Bilirubin,Total 1.2 MG/DL (0.2-1.0); Calcium 7.9 MG/DL (8.5-10.1); Osmolality,Calculated 277.2 MOS/KG (273-304); Potassium 3.2 MMOL/L (3.5-5.1); Total Protein 6.8 G/DL (6.4-8.3); Troponin I Only 0.028 NG/ML (0.00-0.045)
[2018-01-15] MEDS ORDERED: MAGNESIUM SULF RIDER 2 GM in PREMIX 1 EACH IV STA (03:04)
[2018-01-15 03:46] LABS: Lymphocytes 5 % (20-55); Segmented Neutrophils 91 % (50-85); Total Cells Counted 100
[2018-01-15 03:47] LABS: Acanthocytes Few; Anisocytosis 1+; Platelet Estimate Adequate
[2018-01-15] MEDS ORDERED: ONDANSETRON 4 MG/2 ML VIAL IV PRN (04:24)
[2018-01-15] MEDS ORDERED: GLUCAGON 1 MG VIAL IM PRN (04:35)
[2018-01-15] MEDS ORDERED: DEXTROSE 50% 25 GM/50 ML VIAL IV PRN (04:35)
[2018-01-15] MEDS ORDERED: VANCOMYCIN 1,000 MG VIAL ONE (04:57)
[2018-01-15 05:44] LABS: Calcium 8.1 MG/DL (8.5-10.1); Osmolality,Calculated 277.2 MOS/KG (273-304); Potassium 2.9 MMOL/L (3.5-5.1)
[2018-01-15] MEDS ORDERED: MAGNESIUM SULF RIDER 2 GM in PREMIX 1 EACH IV PRN (05:45)
[2018-01-15] MEDS: POTASSIUM CHLORIDE 20 MEQ TABLET PO PRN ×3 (06:32→12:19)
[2018-01-15] MEDS: LEVOTHYROXINE 25 MCG TABLET PO SCH (06:32)
[2018-01-15] MEDS: INSULIN LISPRO 100 UNIT/ML SUBCUT SCH ×5 (06:32→22:16)
[2018-01-15] MEDS: SODIUM CHLORIDE 0.9% 1,000 ML IV SCH ×2 (06:32→22:16)
[2018-01-15 08:40] LABS: Hepatitis A Ab IgM Quant 0.19 Index; Hepatitis A Ab IgM Result Negative (Negative); Hepatitis B Core IgM Quant 0.15 Index; Hepatitis B Core IgM Result Negative (Negative); Hepatitis B Surface Ag Quant 0.14 Index; Hepatitis B Surface Ag Result Negative (Negative); Hepatitis C Virus Ab Quant 0.08 Index; Hepatitis C Virus Ab Result Negative (Negative)
[2018-01-15] MEDS: PIPERACILLIN/TAZOBACTAM 3,375 MG in SODIUM CHLORIDE 0.9% 100 ML IV SCH ×2 (08:49→18:38)
[2018-01-15] MEDS: ENOXAPARIN 40 MG/0.4 ML SYRINGE SUBCUT SCH (08:53)
[2018-01-15] MEDS: ISOSORBIDE MONONITRATE 30 MG TABLET PO SCH (08:56)
[2018-01-15] MEDS: PANTOPRAZOLE 40 MG TABLET PO SCH (08:56)
[2018-01-15] MEDS: LOSARTAN/HCTZ 50-12.5 MG TABLET PO SCH (08:56)
[2018-01-15] MEDS: FOLIC ACID 1 MG TABLET PO SCH (08:57)
[2018-01-15] MEDS: ASPIRIN EC 81 MG TABLET PO SCH (08:57)
[2018-01-15] MEDS: MORPHINE ER 30 MG TABLET PO SCH (08:57)
[2018-01-15] MEDS: PARoxetine 20 MG TABLET PO SCH (08:57)
[2018-01-15] MEDS: DOXAZOSIN 1 MG TABLET PO SCH (08:57)
[2018-01-15] MEDS ORDERED: ENZALUTAMIDE 160 MG PO SCH (09:00)
[2018-01-15] MEDS ORDERED: ATORVASTATIN 80 MG TABLET PO SCH (09:00)
[2018-01-15] MEDS ORDERED: NON-FORMULARY MEDICATION (Enzalutamide [Xtandi] 160 MG) PO SCH (16:00)
[2018-01-15] MEDS: VANCOMYCIN INJ 1,750 MG in SODIUM CHLORIDE 0.9% 500 ML IV SCH (16:22)
[2018-01-15] MEDS: ZINC OXIDE PASTE 113 GM TUBE TOP SCH ×2 (18:38→22:16)
[2018-01-15] MEDS ORDERED: INSULIN GLARGINE 100 UNIT/ML SUBCUT SCH (21:00)
[2018-01-15] MEDS: DONEPEZIL 5 MG TABLET PO SCH (22:15)
[2018-01-15] MEDS: MORPHINE ER 15 MG TABLET PO SCH (22:15)
[2018-01-16] MEDS: INSULIN LISPRO 100 UNIT/ML SUBCUT SCH ×6 (00:55→20:53)
[2018-01-16] MEDS: VANCOMYCIN INJ 1,750 MG in SODIUM CHLORIDE 0.9% 500 ML IV SCH ×2 (04:08→17:57)
[2018-01-16 04:52] LABS: Basophils % 0.1 % (0.0-0.8); Eosinophils % 0.1 % (0.00-10.9); Hematocrit 29.6 VOL% (42.0-52.0); Hemoglobin 9.8 GM/DL (14.0-18.0); Immature Granulocytes % 0.6 %; Immature Granulocytes Absolute 0.09 #; Lymphocytes # 0.7 10*3/uL (1.4-4.0); Lymphocytes % 4.9 % (21.2-54.2); Mean Corpuscular HGB Conc 33.1 GM/DL (32-36); Mean Corpuscular Hemoglobin 28 PG (27-34); Mean Corpuscular Volume 85.8 FL (87-102); Mean Platelet Volume 10.5 FL (9.6-12.0); Monocytes # 1.4 10*3/uL (0.11-0.8); Monocytes % 9.9 % (1.7-12.7); Neutrophils # 11.8 10*3/uL (1.4-7.4); Neutrophils % 84.4 % (38.7-73.9); Platelet Count 263 T/CUMM (130-400); Red Blood Count 3.45 MC/CUMM (3.8-5.5); Red Cell Distribution Width 16.2 % (9.3-17.3)
[2018-01-16 05:29] LABS: Calcium 7.8 MG/DL (8.5-10.1); Osmolality,Calculated 288.8 MOS/KG (273-304)
[2018-01-16 05:38] LABS: Eosinophils 1 % (0-10); Hypochromasia 1+; Lymphocytes 2 % (20-55); Ovalocytes Slight; Platelet Estimate Adequate; Segmented Neutrophils 87 % (50-85); Total Cells Counted 100
[2018-01-16] MEDS: PIPERACILLIN/TAZOBACTAM 3,375 MG in SODIUM CHLORIDE 0.9% 100 ML IV SCH ×2 (06:15→15:07)
[2018-01-16] MEDS: LEVOTHYROXINE 25 MCG TABLET PO SCH (06:15)
[2018-01-16] MEDS: POTASSIUM CHLORIDE 20 MEQ TABLET PO PRN ×4 (06:17→13:19)
[2018-01-16] MEDS: ZINC OXIDE PASTE 113 GM TUBE TOP SCH ×2 (09:13→20:56)
[2018-01-16] MEDS: ENOXAPARIN 40 MG/0.4 ML SYRINGE SUBCUT SCH (09:13)
[2018-01-16] MEDS: ISOSORBIDE MONONITRATE 30 MG TABLET PO SCH (09:14)
[2018-01-16] MEDS: ASPIRIN EC 81 MG TABLET PO SCH (09:14)
[2018-01-16] MEDS: PARoxetine 20 MG TABLET PO SCH (09:14)
[2018-01-16] MEDS: LOSARTAN/HCTZ 50-12.5 MG TABLET PO SCH (09:14)
[2018-01-16] MEDS: PANTOPRAZOLE 40 MG TABLET PO SCH (09:14)
[2018-01-16] MEDS: FOLIC ACID 1 MG TABLET PO SCH (09:14)
[2018-01-16] MEDS: MORPHINE ER 30 MG TABLET PO SCH (09:14)
[2018-01-16] MEDS: DOXAZOSIN 1 MG TABLET PO SCH (09:20)
[2018-01-16] MEDS: SODIUM CHLORIDE 0.9% 1,000 ML IV SCH (14:30)
[2018-01-16] MEDS: sitaGLIPtin 100 MG TABLET PO SCH (17:56)
[2018-01-16] MEDS: COENZYME Q10 100 MG CAPSULE PO SCH (17:56)
[2018-01-16] MEDS: DONEPEZIL 5 MG TABLET PO SCH (20:47)
[2018-01-16] MEDS: MORPHINE ER 15 MG TABLET PO SCH (20:47)
[2018-01-16] MEDS: LACTULOSE 20 GM/30 ML UDCUP PO SCH (20:48)
[2018-01-16] MEDS: INSULIN GLARGINE 100 UNIT/ML SUBCUT SCH (20:52)
[2018-01-17] MEDS: INSULIN LISPRO 100 UNIT/ML SUBCUT SCH ×6 (00:53→21:29)
[2018-01-17] MEDS: PIPERACILLIN/TAZOBACTAM 3,375 MG in SODIUM CHLORIDE 0.9% 100 ML IV SCH ×4 (00:55→20:39)
[2018-01-17] MEDS: SODIUM CHLORIDE 0.9% 1,000 ML IV SCH ×2 (04:46→21:30)
[2018-01-17 05:00] LABS: Calcium 7.7 MG/DL (8.5-10.1); Osmolality,Calculated 280.4 MOS/KG (273-304); Potassium 3.2 MMOL/L (3.5-5.1)
[2018-01-17 05:09] LABS: Basophils % 0.3 % (0.0-0.8); Eosinophils # 0.3 10*3/uL (0.0-0.87); Eosinophils % 2.9 % (0.00-10.9); Hemoglobin 9.9 GM/DL (14.0-18.0); Immature Granulocytes % 0.5 %; Immature Granulocytes Absolute 0.05 #; Lymphocytes # 0.8 10*3/uL (1.4-4.0); Mean Corpuscular Hemoglobin 29 PG (27-34); Mean Corpuscular Volume 87.2 FL (87-102); Mean Platelet Volume 10.3 FL (9.6-12.0); Monocytes # 1.2 10*3/uL (0.11-0.8); Neutrophils # 7.9 10*3/uL (1.4-7.4); Neutrophils % 76.3 % (38.7-73.9); Platelet Count 252 T/CUMM (130-400); Red Blood Count 3.44 MC/CUMM (3.8-5.5); White Blood Count 10.3 T/CUMM (4-12)
[2018-01-17] MEDS: VANCOMYCIN INJ 1,750 MG in SODIUM CHLORIDE 0.9% 500 ML IV SCH ×2 (05:26→16:39)
[2018-01-17] MEDS: POTASSIUM CHLORIDE 20 MEQ TABLET PO PRN ×4 (05:31→15:28)
[2018-01-17] MEDS: LEVOTHYROXINE 50 MCG TABLET PO SCH (06:22)
[2018-01-17] MEDS: LOSARTAN/HCTZ 50-12.5 MG TABLET PO SCH (09:58)
[2018-01-17] MEDS: ZINC OXIDE PASTE 113 GM TUBE TOP SCH ×2 (10:00→21:30)
[2018-01-17] MEDS: ISOSORBIDE MONONITRATE 30 MG TABLET PO SCH (10:02)
[2018-01-17] MEDS: ASPIRIN EC 81 MG TABLET PO SCH (10:02)
[2018-01-17] MEDS: DOXAZOSIN 1 MG TABLET PO SCH (10:02)
[2018-01-17] MEDS: FOLIC ACID 1 MG TABLET PO SCH (10:02)
[2018-01-17] MEDS: PARoxetine 20 MG TABLET PO SCH (10:03)
[2018-01-17] MEDS: PANTOPRAZOLE 40 MG TABLET PO SCH (10:03)
[2018-01-17] MEDS: sitaGLIPtin 100 MG TABLET PO SCH (10:03)
[2018-01-17] MEDS: MORPHINE ER 30 MG TABLET PO SCH (10:04)
[2018-01-17] MEDS: ENOXAPARIN 40 MG/0.4 ML SYRINGE SUBCUT SCH (10:05)
[2018-01-17] MEDS: COENZYME Q10 100 MG CAPSULE PO SCH (10:05)
[2018-01-17] MEDS: LACTULOSE 20 GM/30 ML UDCUP PO SCH ×3 (10:05→21:29)
[2018-01-17] MEDS: MORPHINE ER 15 MG TABLET PO SCH (21:29)
[2018-01-17] MEDS: INSULIN GLARGINE 100 UNIT/ML SUBCUT SCH (21:29)
[2018-01-17] MEDS: DONEPEZIL 5 MG TABLET PO SCH (21:29)
[2018-01-17 22:07] LABS: Apearance,Urine CLEAR (Clear); Bacteria,Urine Occasional /HPF (Few); Bilirubin,Urine Negative (Negative); Blood, Urine Negative (Negative); Glucose,Urine (UA) Negative (Negative); Ketones,Urine Negative (Negative); Nitrite,Urine Negative (Negative); Protein,Urine Negative; RBC,Urine <1 /HPF (0-4); Squamous Epithelial Cell,Urine Occasional /HPF (0-10); Urine Color Yellow (Yellow); Urine Urobilinogen < 2.0 EU/DL (0.2-1.0); WBC,Urine 1 /HPF (0-6)
[2018-01-18] MEDS: PIPERACILLIN/TAZOBACTAM 3,375 MG in SODIUM CHLORIDE 0.9% 100 ML IV SCH ×4 (00:01→23:30)
[2018-01-18] MEDS: POTASSIUM CHLORIDE 20 MEQ TABLET PO PRN ×4 (01:22→08:26)
[2018-01-18] MEDS: INSULIN LISPRO 100 UNIT/ML SUBCUT SCH ×6 (01:22→21:45)
[2018-01-18] MEDS: VANCOMYCIN INJ 1,750 MG in SODIUM CHLORIDE 0.9% 500 ML IV SCH ×2 (05:57→21:38)
[2018-01-18] MEDS: LEVOTHYROXINE 50 MCG TABLET PO SCH (05:58)
[2018-01-18] MEDS: MORPHINE ER 30 MG TABLET PO SCH (07:42)
[2018-01-18] MEDS: DOXAZOSIN 1 MG TABLET PO SCH (08:26)
[2018-01-18] MEDS: sitaGLIPtin 100 MG TABLET PO SCH (08:27)
[2018-01-18] MEDS: FOLIC ACID 1 MG TABLET PO SCH (08:27)
[2018-01-18] MEDS: ASPIRIN EC 81 MG TABLET PO SCH (08:27)
[2018-01-18] MEDS: LOSARTAN/HCTZ 50-12.5 MG TABLET PO SCH (08:27)
[2018-01-18] MEDS: PARoxetine 20 MG TABLET PO SCH (08:28)
[2018-01-18] MEDS: ENOXAPARIN 40 MG/0.4 ML SYRINGE SUBCUT SCH (08:28)
[2018-01-18] MEDS: ISOSORBIDE MONONITRATE 30 MG TABLET PO SCH (08:29)
[2018-01-18] MEDS: PANTOPRAZOLE 40 MG TABLET PO SCH (08:30)
[2018-01-18] MEDS: POLYETHYLENE GLYCOL POWDER 17 GM PACK PO SCH ×2 (10:38→21:28)
[2018-01-18] MEDS: COENZYME Q10 100 MG CAPSULE PO SCH (10:38)
[2018-01-18] MEDS: RIFAXIMIN 550 MG TABLET PO SCH ×2 (10:39→21:28)
[2018-01-18] MEDS: INSULIN GLARGINE 100 UNIT/ML SUBCUT SCH (21:27)
[2018-01-18] MEDS: MORPHINE ER 15 MG TABLET PO SCH (21:28)
[2018-01-18] MEDS: DONEPEZIL 5 MG TABLET PO SCH (21:33)
[2018-01-18] MEDS: SODIUM CHLORIDE 0.9% 1,000 ML IV SCH (21:46)
[2018-01-18] MEDS: ZINC OXIDE PASTE 113 GM TUBE TOP SCH ×2 (21:46→21:48)
[2018-01-19] MEDS: INSULIN LISPRO 100 UNIT/ML SUBCUT SCH ×6 (03:04→22:04)
[2018-01-19 04:43] LABS: Basophils # 0.1 10*3/uL (0.0-0.2); Basophils % 0.7 % (0.0-0.8); Eosinophils # 0.4 10*3/uL (0.0-0.87); Eosinophils % 5.6 % (0.00-10.9); Hematocrit 32.2 VOL% (42.0-52.0); Hemoglobin 10.3 GM/DL (14.0-18.0); Immature Granulocytes % 0.4 %; Immature Granulocytes Absolute 0.03 #; Lymphocytes # 0.7 10*3/uL (1.4-4.0); Lymphocytes % 10.4 % (21.2-54.2); Mean Corpuscular Hemoglobin 28 PG (27-34); Mean Corpuscular Volume 87.5 FL (87-102); Mean Platelet Volume 9.9 FL (9.6-12.0); Monocytes # 0.9 10*3/uL (0.11-0.8); Monocytes % 12.5 % (1.7-12.7); Neutrophils % 70.4 % (38.7-73.9); Platelet Count 274 T/CUMM (130-400); Red Blood Count 3.68 MC/CUMM (3.8-5.5); Red Cell Distribution Width 15.9 % (9.3-17.3); White Blood Count 7.1 T/CUMM (4-12)
[2018-01-19 05:07] LABS: Calcium 7.4 MG/DL (8.5-10.1); Osmolality,Calculated 283.3 MOS/KG (273-304); Potassium 3.4 MMOL/L (3.5-5.1)
[2018-01-19] MEDS: LEVOTHYROXINE 50 MCG TABLET PO SCH (07:01)
[2018-01-19] MEDS: VANCOMYCIN INJ 1,750 MG in SODIUM CHLORIDE 0.9% 500 ML IV SCH ×2 (07:01→18:07)
[2018-01-19] MEDS: sitaGLIPtin 100 MG TABLET PO SCH (09:06)
[2018-01-19] MEDS: LOSARTAN/HCTZ 50-12.5 MG TABLET PO SCH (09:06)
[2018-01-19] MEDS: PANTOPRAZOLE 40 MG TABLET PO SCH (09:06)
[2018-01-19] MEDS: ISOSORBIDE MONONITRATE 30 MG TABLET PO SCH (09:06)
[2018-01-19] MEDS: RIFAXIMIN 550 MG TABLET PO SCH ×2 (09:06→22:03)
[2018-01-19] MEDS: FOLIC ACID 1 MG TABLET PO SCH (09:06)
[2018-01-19] MEDS: ASPIRIN EC 81 MG TABLET PO SCH (09:06)
[2018-01-19] MEDS: MORPHINE ER 30 MG TABLET PO SCH (09:06)
[2018-01-19] MEDS: DOXAZOSIN 1 MG TABLET PO SCH (09:06)
[2018-01-19] MEDS: PARoxetine 20 MG TABLET PO SCH (09:07)
[2018-01-19] MEDS: ENOXAPARIN 40 MG/0.4 ML SYRINGE SUBCUT SCH (09:07)
[2018-01-19] MEDS: POLYETHYLENE GLYCOL POWDER 17 GM PACK PO SCH ×2 (09:07→22:03)
[2018-01-19] MEDS: COENZYME Q10 100 MG CAPSULE PO SCH (09:10)
[2018-01-19] MEDS: ZINC OXIDE PASTE 113 GM TUBE TOP SCH ×2 (09:10→22:03)
[2018-01-19] MEDS: PIPERACILLIN/TAZOBACTAM 3,375 MG in SODIUM CHLORIDE 0.9% 100 ML IV SCH (09:57)
[2018-01-19] MEDS: SODIUM CHLORIDE 0.9% 1,000 ML IV SCH ×2 (09:57→22:12)
[2018-01-19] MEDS: MORPHINE ER 15 MG TABLET PO SCH (22:03)
[2018-01-19] MEDS: INSULIN GLARGINE 100 UNIT/ML SUBCUT SCH (22:03)
[2018-01-19] MEDS: DONEPEZIL 5 MG TABLET PO SCH (22:03)
[2018-01-20] MEDS: INSULIN LISPRO 100 UNIT/ML SUBCUT SCH ×6 (00:30→21:31)
[2018-01-20 04:31] LABS: Basophils # 0.1 10*3/uL (0.0-0.2); Basophils % 0.8 % (0.0-0.8); Eosinophils # 0.5 10*3/uL (0.0-0.87); Hematocrit 31.1 VOL% (42.0-52.0); Immature Granulocytes % 0.7 %; Immature Granulocytes Absolute 0.05 #; Lymphocytes % 13.6 % (21.2-54.2); Mean Corpuscular HGB Conc 32.2 GM/DL (32-36); Mean Corpuscular Hemoglobin 28 PG (27-34); Mean Corpuscular Volume 87.6 FL (87-102); Mean Platelet Volume 10.1 FL (9.6-12.0); Monocytes % 12.9 % (1.7-12.7); Neutrophils # 4.9 10*3/uL (1.4-7.4); Platelet Count 290 T/CUMM (130-400); Red Blood Count 3.55 MC/CUMM (3.8-5.5); Red Cell Distribution Width 15.9 % (9.3-17.3); White Blood Count 7.5 T/CUMM (4-12)
[2018-01-20 05:20] LABS: Calcium 7.3 MG/DL (8.5-10.1); Osmolality,Calculated 281.1 MOS/KG (273-304); Potassium 3.2 MMOL/L (3.5-5.1)
[2018-01-20 05:24] LABS: Albumin 1.6 G/DL (3.4-5.0); Bilirubin,Direct 0.3 MG/DL (0.0-0.20); Bilirubin,Indirect 0.2 MG/DL (0.0-1.0); Bilirubin,Total 0.5 MG/DL (0.2-1.0); Total Protein 6.5 G/DL (6.4-8.3)
[2018-01-20] MEDS: POTASSIUM CHLORIDE 20 MEQ TABLET PO PRN ×4 (05:48→18:30)
[2018-01-20] MEDS: VANCOMYCIN INJ 1,750 MG in SODIUM CHLORIDE 0.9% 500 ML IV SCH ×2 (05:49→18:27)
[2018-01-20] MEDS: LEVOTHYROXINE 50 MCG TABLET PO SCH (05:49)
[2018-01-20] MEDS: SODIUM CHLORIDE 0.9% 1,000 ML IV SCH (06:26)
[2018-01-20] MEDS: ENOXAPARIN 40 MG/0.4 ML SYRINGE SUBCUT SCH (08:58)
[2018-01-20] MEDS: POLYETHYLENE GLYCOL POWDER 17 GM PACK PO SCH (12:44)
[2018-01-20] MEDS: sitaGLIPtin 100 MG TABLET PO SCH (12:52)
[2018-01-20] MEDS: ASPIRIN EC 81 MG TABLET PO SCH (12:52)
[2018-01-20] MEDS: DOXAZOSIN 1 MG TABLET PO SCH (12:52)
[2018-01-20] MEDS: RIFAXIMIN 550 MG TABLET PO SCH ×2 (12:53→21:32)
[2018-01-20] MEDS: MORPHINE ER 30 MG TABLET PO SCH (12:53)
[2018-01-20] MEDS: FOLIC ACID 1 MG TABLET PO SCH (12:53)
[2018-01-20] MEDS: PARoxetine 20 MG TABLET PO SCH (12:53)
[2018-01-20] MEDS: PANTOPRAZOLE 40 MG TABLET PO SCH (12:53)
[2018-01-20] MEDS: LOSARTAN/HCTZ 50-12.5 MG TABLET PO SCH (12:53)
[2018-01-20] MEDS: COENZYME Q10 100 MG CAPSULE PO SCH (12:53)
[2018-01-20] MEDS: ISOSORBIDE MONONITRATE 30 MG TABLET PO SCH (12:54)
[2018-01-20] MEDS: LACTULOSE 20 GM/30 ML UDCUP PO SCH ×2 (12:54→21:31)
[2018-01-20] MEDS: ZINC OXIDE PASTE 113 GM TUBE TOP SCH ×2 (13:02→21:33)
[2018-01-20 15:17] LABS: Neutrophils,Peritoneal Fluid 6 %
[2018-01-20 15:18] LABS: RBC,Peritoneal Fluid 1094 T/CUMM
[2018-01-20] MEDS: INSULIN GLARGINE 100 UNIT/ML SUBCUT SCH (21:31)
[2018-01-20] MEDS: SPIRONOLACTONE 50 MG TABLET PO SCH (21:32)
[2018-01-20] MEDS: DONEPEZIL 5 MG TABLET PO SCH (21:33)
[2018-01-20] MEDS: MORPHINE ER 15 MG TABLET PO SCH (21:33)
[2018-01-21] MEDS: SODIUM CHLORIDE 0.9% 1,000 ML IV SCH (02:02)
[2018-01-21 04:50] LABS: Basophils # 0.1 10*3/uL (0.0-0.2); Eosinophils # 0.5 10*3/uL (0.0-0.87); Eosinophils % 6.2 % (0.00-10.9); Hematocrit 33.6 VOL% (42.0-52.0); Hemoglobin 10.6 GM/DL (14.0-18.0); Immature Granulocytes % 0.7 %; Immature Granulocytes Absolute 0.05 #; Lymphocytes # 0.9 10*3/uL (1.4-4.0); Lymphocytes % 12.6 % (21.2-54.2); Mean Corpuscular HGB Conc 31.5 GM/DL (32-36); Mean Corpuscular Hemoglobin 28 PG (27-34); Mean Corpuscular Volume 87.7 FL (87-102); Monocytes % 13.7 % (1.7-12.7); Neutrophils # 4.8 10*3/uL (1.4-7.4); Neutrophils % 65.8 % (38.7-73.9); Platelet Count 326 T/CUMM (130-400); Red Blood Count 3.83 MC/CUMM (3.8-5.5); White Blood Count 7.2 T/CUMM (4-12)
[2018-01-21] MEDS: INSULIN LISPRO 100 UNIT/ML SUBCUT SCH ×6 (05:28→22:02)
[2018-01-21 05:31] LABS: Calcium 7.6 MG/DL (8.5-10.1); Osmolality,Calculated 285.1 MOS/KG (273-304); Potassium 3.8 MMOL/L (3.5-5.1)
[2018-01-21] MEDS: LEVOTHYROXINE 50 MCG TABLET PO SCH (05:31)
[2018-01-21] MEDS: MORPHINE ER 30 MG TABLET PO SCH (10:23)
[2018-01-21] MEDS: SPIRONOLACTONE 50 MG TABLET PO SCH ×2 (10:24→22:01)
[2018-01-21] MEDS: FOLIC ACID 1 MG TABLET PO SCH (10:25)
[2018-01-21] MEDS: LACTULOSE 20 GM/30 ML UDCUP PO SCH ×2 (10:25→22:02)
[2018-01-21] MEDS: DOXAZOSIN 1 MG TABLET PO SCH (10:25)
[2018-01-21] MEDS: COENZYME Q10 100 MG CAPSULE PO SCH (10:25)
[2018-01-21] MEDS: LOSARTAN/HCTZ 50-12.5 MG TABLET PO SCH (10:25)
[2018-01-21] MEDS: ZINC OXIDE PASTE 113 GM TUBE TOP SCH ×2 (10:25→23:27)
[2018-01-21] MEDS: ENOXAPARIN 40 MG/0.4 ML SYRINGE SUBCUT SCH (10:26)
[2018-01-21] MEDS: sitaGLIPtin 100 MG TABLET PO SCH (10:26)
[2018-01-21] MEDS: PARoxetine 20 MG TABLET PO SCH (10:26)
[2018-01-21] MEDS: ISOSORBIDE MONONITRATE 30 MG TABLET PO SCH (10:26)
[2018-01-21] MEDS: PANTOPRAZOLE 40 MG TABLET PO SCH (10:27)
[2018-01-21] MEDS: RIFAXIMIN 550 MG TABLET PO SCH ×2 (10:27→22:01)
[2018-01-21] MEDS: ASPIRIN EC 81 MG TABLET PO SCH (10:32)
[2018-01-21] MEDS ORDERED: VANCOMYCIN INJ 1,750 MG in SODIUM CHLORIDE 0.9% 500 ML IV SCH (12:30)
[2018-01-21] MEDS: VANCOMYCIN INJ 2,250 MG in SODIUM CHLORIDE 0.9% 500 ML IV SCH (14:40)
[2018-01-21] MEDS: MORPHINE ER 15 MG TABLET PO SCH (22:00)
[2018-01-21] MEDS: INSULIN GLARGINE 100 UNIT/ML SUBCUT SCH (22:01)
[2018-01-21] MEDS: DONEPEZIL 5 MG TABLET PO SCH (22:01)
[2018-01-22] MEDS: INSULIN LISPRO 100 UNIT/ML SUBCUT SCH ×7 (01:00→23:41)
[2018-01-22] MEDS: SODIUM CHLORIDE 0.9% 1,000 ML IV SCH ×3 (01:18→18:33)
[2018-01-22 05:01] LABS: Basophils # 0.1 10*3/uL (0.0-0.2); Basophils % 0.6 % (0.0-0.8); Eosinophils # 0.5 10*3/uL (0.0-0.87); Eosinophils % 5.6 % (0.00-10.9); Hematocrit 32.5 VOL% (42.0-52.0); Hemoglobin 10.5 GM/DL (14.0-18.0); Immature Granulocytes % 0.8 %; Immature Granulocytes Absolute 0.07 #; Lymphocytes # 1.1 10*3/uL (1.4-4.0); Lymphocytes % 12.7 % (21.2-54.2); Mean Corpuscular HGB Conc 32.3 GM/DL (32-36); Mean Corpuscular Hemoglobin 28 PG (27-34); Mean Corpuscular Volume 86.9 FL (87-102); Mean Platelet Volume 9.8 FL (9.6-12.0); Monocytes # 1.2 10*3/uL (0.11-0.8); Monocytes % 13.5 % (1.7-12.7); Neutrophils # 5.9 10*3/uL (1.4-7.4); Neutrophils % 66.8 % (38.7-73.9); Platelet Count 297 T/CUMM (130-400); Red Blood Count 3.74 MC/CUMM (3.8-5.5); Red Cell Distribution Width 16.1 % (9.3-17.3); White Blood Count 8.8 T/CUMM (4-12)
[2018-01-22] MEDS: LEVOTHYROXINE 50 MCG TABLET PO SCH (05:29)
[2018-01-22 05:43] LABS: Calcium 7.7 MG/DL (8.5-10.1); Osmolality,Calculated 283.4 MOS/KG (273-304); Potassium 3.7 MMOL/L (3.5-5.1)
[2018-01-22] MEDS: POTASSIUM CHLORIDE 20 MEQ TABLET PO PRN (06:03)
[2018-01-22] MEDS: MORPHINE ER 30 MG TABLET PO SCH (09:06)
[2018-01-22] MEDS: DOXAZOSIN 1 MG TABLET PO SCH (09:06)
[2018-01-22] MEDS: LOSARTAN/HCTZ 50-12.5 MG TABLET PO SCH (09:06)
[2018-01-22] MEDS: COENZYME Q10 100 MG CAPSULE PO SCH (09:06)
[2018-01-22] MEDS: RIFAXIMIN 550 MG TABLET PO SCH ×2 (09:06→20:47)
[2018-01-22] MEDS: LACTULOSE 20 GM/30 ML UDCUP PO SCH ×2 (09:07→20:48)
[2018-01-22] MEDS: SPIRONOLACTONE 50 MG TABLET PO SCH ×2 (09:07→20:47)
[2018-01-22] MEDS: FOLIC ACID 1 MG TABLET PO SCH (09:07)
[2018-01-22] MEDS: PARoxetine 20 MG TABLET PO SCH (09:07)
[2018-01-22] MEDS: ASPIRIN EC 81 MG TABLET PO SCH (09:07)
[2018-01-22] MEDS: sitaGLIPtin 100 MG TABLET PO SCH (09:07)
[2018-01-22] MEDS: PANTOPRAZOLE 40 MG TABLET PO SCH (09:07)
[2018-01-22] MEDS: ISOSORBIDE MONONITRATE 30 MG TABLET PO SCH (09:07)
[2018-01-22] MEDS: ENOXAPARIN 40 MG/0.4 ML SYRINGE SUBCUT SCH (09:10)
[2018-01-22] MEDS: ZINC OXIDE PASTE 113 GM TUBE TOP SCH ×2 (09:12→20:49)
[2018-01-22] MEDS: VANCOMYCIN INJ 2,250 MG in SODIUM CHLORIDE 0.9% 500 ML IV SCH (14:51)
[2018-01-22] MEDS: MORPHINE ER 15 MG TABLET PO SCH (20:48)
[2018-01-22] MEDS: INSULIN GLARGINE 100 UNIT/ML SUBCUT SCH (20:48)
[2018-01-22] MEDS: DONEPEZIL 5 MG TABLET PO SCH (20:48)
[2018-01-23] MEDS: ALUMINUM/MAGNES/SIMETH MAX STR 30 ML UDCUP PO PRN ×2 (00:45→04:08)
[2018-01-23] MEDS: INSULIN LISPRO 100 UNIT/ML SUBCUT SCH ×4 (04:36→16:53)
[2018-01-23] MEDS: LEVOTHYROXINE 50 MCG TABLET PO SCH (05:33)
[2018-01-23] MEDS: SODIUM CHLORIDE 0.9% 1,000 ML IV SCH ×2 (05:34→14:07)
[2018-01-23] MEDS ORDERED: MORPHINE ER 30 MG TABLET PO SCH (09:30)
[2018-01-23] MEDS: ASPIRIN EC 81 MG TABLET PO SCH (09:40)
[2018-01-23] MEDS: sitaGLIPtin 100 MG TABLET PO SCH (09:40)
[2018-01-23] MEDS: FOLIC ACID 1 MG TABLET PO SCH (09:40)
[2018-01-23] MEDS: PARoxetine 20 MG TABLET PO SCH (09:40)
[2018-01-23] MEDS: ENOXAPARIN 40 MG/0.4 ML SYRINGE SUBCUT SCH ×2 (09:41→10:35)
[2018-01-23] MEDS: COENZYME Q10 100 MG CAPSULE PO SCH (09:41)
[2018-01-23] MEDS: LACTULOSE 20 GM/30 ML UDCUP PO SCH (09:41)
[2018-01-23] MEDS: SPIRONOLACTONE 50 MG TABLET PO SCH (09:41)
[2018-01-23] MEDS: DOXAZOSIN 1 MG TABLET PO SCH (09:41)
[2018-01-23] MEDS: ISOSORBIDE MONONITRATE 30 MG TABLET PO SCH (09:41)
[2018-01-23] MEDS: RIFAXIMIN 550 MG TABLET PO SCH (09:41)
[2018-01-23] MEDS: PANTOPRAZOLE 40 MG TABLET PO SCH (09:41)
[2018-01-23] MEDS: LOSARTAN/HCTZ 50-12.5 MG TABLET PO SCH (09:41)
[2018-01-23] MEDS: ZINC OXIDE PASTE 113 GM TUBE TOP SCH (10:22)
[2018-01-23] MEDS: VANCOMYCIN INJ 2,250 MG in SODIUM CHLORIDE 0.9% 500 ML IV SCH (14:07)
[2018-01-23] MEDS ORDERED: ENZALUTAMIDE PO SCH (16:00)
[2018-01-23 16:50] VITALS: BP 164/84
[2018-01-23] MEDS ORDERED: MORPHINE ER 15 MG TABLET PO SCH (21:00)
== END 2018-01-23 16:51 | disposition home health service (06) | DRG 871 ==
LOC: EDUNIT# → EDBD → N.ED 00:03 → N.EDINP 04:24 → SUATTDRO 04:24 → N.TELEN 05:13
PROVIDERS: ADMIT Internal Medicine; ATTEND Hospitalist

== ENCOUNTER 2018-02-07 19:51 | Inpatient (IN) ==
[2018-02-07] MEDS ORDERED: CEFEPIME 2,000 MG in SODIUM CHLORIDE 0.9% 100 ML IV STA (20:50)
[2018-02-07] MEDS ORDERED: VANCOMYCIN INJ 1,750 MG in SODIUM CHLORIDE 0.9% 250 ML IV STA (20:50)
[2018-02-07] MEDS ORDERED: VANCOMYCIN INJ 1,750 MG in SODIUM CHLORIDE 0.9% 500 ML IV STA (20:54)
[2018-02-07] MEDS ORDERED: CEFEPIME 2,000 MG in SYRINGE 1 EACH IV STA (20:55)
[2018-02-07 21:21] LABS: Basophils % 0.4 % (0.0-0.8); Eosinophils # 0.3 10*3/uL (0.0-0.87); Eosinophils % 3.9 % (0.00-10.9); Hematocrit 30.7 VOL% (42.0-52.0); Hemoglobin 9.8 GM/DL (14.0-18.0); Immature Granulocytes % 0.9 %; Immature Granulocytes Absolute 0.07 #; Lymphocytes # 0.9 10*3/uL (1.4-4.0); Lymphocytes % 11.2 % (21.2-54.2); Mean Corpuscular HGB Conc 31.9 GM/DL (32-36); Mean Corpuscular Hemoglobin 28 PG (27-34); Mean Corpuscular Volume 86.2 FL (87-102); Mean Platelet Volume 10.2 FL (9.6-12.0); Monocytes # 1.4 10*3/uL (0.11-0.8); Monocytes % 17.4 % (1.7-12.7); Neutrophils # 5.1 10*3/uL (1.4-7.4); Neutrophils % 66.2 % (38.7-73.9); Platelet Count 273 T/CUMM (130-400); Red Blood Count 3.56 MC/CUMM (3.8-5.5); Red Cell Distribution Width 18.1 % (9.3-17.3); White Blood Count 7.8 T/CUMM (4-12)
[2018-02-07 21:30] LABS: INR 1.1; PT Patient Result 11.1 SECS
[2018-02-07 21:38] LABS: Alanine Aminotransferase 27 U/L (16-61); Albumin 1.7 G/DL (3.4-5.0); Alkaline Phosphatase 386 U/L (45-117); Aspartate Amino Transferase 66 U/L (0-37); Blood Urea Nitrogen 15 MG/DL (7-18); Calcium 8.4 MG/DL (8.5-10.1); Glucose 116 MG/DL (74-106); Lactic Acid 3.1 MMOL/L (0.4-2.0); Osmolality,Calculated 274.8 MOS/KG (273-304); Potassium 4.6 MMOL/L (3.5-5.1); Sodium 137 MMOL/L (136-145); Total Protein 7.1 G/DL (6.4-8.3)
[2018-02-07 21:56] LABS: Band Neutrophils 2 % (0-10); Eosinophils 4 % (0-10); Lymphocytes 8 % (20-55); Segmented Neutrophils 70 % (50-85); Total Cells Counted 100
[2018-02-07 21:57] LABS: Hypochromasia Slight; Microcytosis Slight; Platelet Estimate Adequate
[2018-02-07 21:59] LABS: Apearance,Urine CLEAR (Clear); Bilirubin,Urine Negative (Negative); Blood, Urine Negative (Negative); Glucose,Urine (UA) Negative (Negative); Ketones,Urine Negative (Negative); Nitrite,Urine Negative (Negative); Protein,Urine Negative; RBC,Urine <1 /HPF (0-4); Squamous Epithelial Cell,Urine Occasional /HPF (0-10); Urine Color Yellow (Yellow); Urine Urobilinogen < 2.0 EU/DL (0.2-1.0); WBC,Urine 1 /HPF (0-6)
[2018-02-07] MEDS ORDERED: SODIUM CHLORIDE 0.9% 1,000 ML IV STA (22:00)
[2018-02-08] MEDS ORDERED: SODIUM CHLORIDE 0.9% 3,650 ML IV ONE (00:39)
[2018-02-08] MEDS ORDERED: GLUCAGON 1 MG VIAL IM PRN (00:39)
[2018-02-08] MEDS ORDERED: ONDANSETRON 4 MG/2 ML VIAL IV PRN (00:39)
[2018-02-08] MEDS ORDERED: MORPHINE 4 MG/1 ML VIAL IV PRN (00:39)
[2018-02-08] MEDS ORDERED: DEXTROSE 50% 25 GM/50 ML VIAL IV PRN (00:39)
[2018-02-08] MEDS ORDERED: ALBUMIN 25% 50 GM in PREMIX 1 EACH IV ONE ×2 (01:00→08:00)
[2018-02-08 01:41] LABS: Risk Ratio 2.29; VLDL CHOLESTEROL 11.6 MG/DL
[2018-02-08] MEDS: INSULIN REGULAR 100 UNIT/ML SUBCUT SCH ×4 (01:52→18:30)
[2018-02-08] MEDS: LEVOTHYROXINE 50 MCG TABLET PO SCH (06:04)
[2018-02-08] MEDS: CEFTAROLINE 600 MG in SODIUM CHLORIDE 0.9% 100 ML IV SCH ×2 (06:04→17:07)
[2018-02-08] MEDS ORDERED: MAGNESIUM SULF RIDER 2 GM in PREMIX 1 EACH IV ONE (07:38)
[2018-02-08] MEDS ORDERED: LACTULOSE 20 GM/30 ML UDCUP PO SCH (09:00)
[2018-02-08] MEDS ORDERED: Enzalutamide [Xtandi] 160 MG PO SCH (09:00)
[2018-02-08] MEDS: INSULIN LISPRO 100 UNIT/ML SUBCUT SCH ×3 (09:21→17:06)
[2018-02-08] MEDS: ENOXAPARIN 40 MG/0.4 ML SYRINGE SUBCUT SCH (09:22)
[2018-02-08] MEDS: sitaGLIPtin 25 MG TABLET PO SCH ×2 (09:22→17:07)
[2018-02-08] MEDS: MORPHINE ER 30 MG TABLET PO SCH (09:22)
[2018-02-08] MEDS: DOXAZOSIN 1 MG TABLET PO SCH (09:23)
[2018-02-08] MEDS: SPIRONOLACTONE 50 MG TABLET PO SCH ×2 (09:24→17:07)
[2018-02-08] MEDS: LOSARTAN 50 MG TABLET PO SCH (09:24)
[2018-02-08] MEDS: PARoxetine 20 MG TABLET PO SCH (09:24)
[2018-02-08] MEDS: hydroCHLOROthiazide 25 MG TABLET PO SCH (09:24)
[2018-02-08] MEDS: DOCUSATE SODIUM 100 MG CAPSULE PO SCH ×2 (09:25→22:03)
[2018-02-08] MEDS: FOLIC ACID 1 MG TABLET PO SCH (09:25)
[2018-02-08] MEDS: ISOSORBIDE MONONITRATE 30 MG TABLET PO SCH (09:25)
[2018-02-08] MEDS: PANTOPRAZOLE 40 MG TABLET PO SCH (09:25)
[2018-02-08] MEDS: metFORMIN 500 MG TABLET PO SCH ×2 (09:42→17:07)
[2018-02-08] MEDS: SODIUM CHLORIDE 0.9% 1,000 ML IV SCH (16:44)
[2018-02-08] MEDS: DONEPEZIL 5 MG TABLET PO SCH (22:02)
[2018-02-08] MEDS: ASPIRIN EC 81 MG TABLET PO SCH (22:02)
[2018-02-08] MEDS: FAMOTIDINE 20 MG TABLET PO SCH (22:03)
[2018-02-08] MEDS: MORPHINE ER 15 MG TABLET PO SCH (22:03)
[2018-02-08] MEDS: ATORVASTATIN 80 MG TABLET PO SCH (22:03)
[2018-02-08] MEDS: LACTULOSE 20 GM/30 ML UDCUP PO SCH (22:03)
[2018-02-08] MEDS: INSULIN GLARGINE 100 UNIT/ML SUBCUT SCH (22:04)
[2018-02-09] MEDS: INSULIN REGULAR 100 UNIT/ML SUBCUT SCH ×2 (00:03→07:35)
[2018-02-09 05:41] LABS: Basophils % 0.4 % (0.0-0.8); Eosinophils # 0.3 10*3/uL (0.0-0.87); Eosinophils % 3.3 % (0.00-10.9); Hematocrit 29.6 VOL% (42.0-52.0); Hemoglobin 9.5 GM/DL (14.0-18.0); Immature Granulocytes % 0.5 %; Immature Granulocytes Absolute 0.04 #; Lymphocytes # 0.9 10*3/uL (1.4-4.0); Lymphocytes % 10.4 % (21.2-54.2); Mean Corpuscular HGB Conc 32.1 GM/DL (32-36); Mean Corpuscular Hemoglobin 28 PG (27-34); Mean Corpuscular Volume 86.3 FL (87-102); Mean Platelet Volume 10.4 FL (9.6-12.0); Monocytes # 1.1 10*3/uL (0.11-0.8); Neutrophils # 6.1 10*3/uL (1.4-7.4); Neutrophils % 72.4 % (38.7-73.9); Platelet Count 249 T/CUMM (130-400); Red Blood Count 3.43 MC/CUMM (3.8-5.5); Red Cell Distribution Width 18.6 % (9.3-17.3); White Blood Count 8.4 T/CUMM (4-12)
[2018-02-09 06:09] LABS: Calcium 8.2 MG/DL (8.5-10.1); Osmolality,Calculated 283.4 MOS/KG (273-304); Potassium 4.2 MMOL/L (3.5-5.1)
[2018-02-09 06:23] LABS: % Iron Saturation 8.6 % (18-50)
[2018-02-09] MEDS: CEFTAROLINE 600 MG in SODIUM CHLORIDE 0.9% 100 ML IV SCH (06:41)
[2018-02-09] MEDS: LEVOTHYROXINE 50 MCG TABLET PO SCH (06:44)
[2018-02-09] MEDS: SPIRONOLACTONE 50 MG TABLET PO SCH ×3 (08:00→16:43)
[2018-02-09] MEDS: metFORMIN 500 MG TABLET PO SCH ×3 (08:00→16:43)
[2018-02-09] MEDS: hydroCHLOROthiazide 25 MG TABLET PO SCH (10:40)
[2018-02-09] MEDS: sitaGLIPtin 25 MG TABLET PO SCH ×2 (10:40→16:43)
[2018-02-09] MEDS: INSULIN LISPRO 100 UNIT/ML SUBCUT SCH ×5 (10:40→17:43)
[2018-02-09] MEDS: DOXAZOSIN 1 MG TABLET PO SCH (10:40)
[2018-02-09] MEDS: LACTULOSE 20 GM/30 ML UDCUP PO SCH ×3 (10:40→22:38)
[2018-02-09] MEDS: DOCUSATE SODIUM 100 MG CAPSULE PO SCH ×2 (10:40→23:23)
[2018-02-09] MEDS: MORPHINE ER 30 MG TABLET PO SCH (10:42)
[2018-02-09] MEDS: LOSARTAN 50 MG TABLET PO SCH (10:42)
[2018-02-09] MEDS: FOLIC ACID 1 MG TABLET PO SCH (10:42)
[2018-02-09] MEDS: ISOSORBIDE MONONITRATE 30 MG TABLET PO SCH (10:42)
[2018-02-09] MEDS: PARoxetine 20 MG TABLET PO SCH (10:45)
[2018-02-09] MEDS: ENOXAPARIN 40 MG/0.4 ML SYRINGE SUBCUT SCH (10:45)
[2018-02-09] MEDS: PANTOPRAZOLE 40 MG TABLET PO SCH (10:45)
[2018-02-09] MEDS: SODIUM CHLORIDE 0.9% 1,000 ML IV SCH (13:25)
[2018-02-09] MEDS: VANCOMYCIN INJ 1,750 MG in SODIUM CHLORIDE 0.9% 500 ML IV SCH (15:59)
[2018-02-09] MEDS: Enzalutamide [Xtandi] 160 MG PO SCH (17:05)
[2018-02-09] MEDS: INSULIN GLARGINE 100 UNIT/ML SUBCUT SCH ×2 (22:34→22:36)
[2018-02-09] MEDS: ATORVASTATIN 80 MG TABLET PO SCH (22:37)
[2018-02-09] MEDS: FAMOTIDINE 20 MG TABLET PO SCH (22:37)
[2018-02-09] MEDS: MORPHINE ER 15 MG TABLET PO SCH (22:37)
[2018-02-09] MEDS: DONEPEZIL 5 MG TABLET PO SCH (22:38)
[2018-02-09] MEDS: ASPIRIN EC 81 MG TABLET PO SCH (23:22)
[2018-02-09] MEDS: ZINC OXIDE PASTE 113 GM TUBE TOP SCH (23:23)
[2018-02-10] MEDS: LEVOTHYROXINE 50 MCG TABLET PO SCH (06:38)
[2018-02-10] MEDS: INSULIN LISPRO 100 UNIT/ML SUBCUT SCH ×7 (06:39→17:18)
[2018-02-10 07:02] LABS: Basophils % 0.5 % (0.0-0.8); Eosinophils # 0.3 10*3/uL (0.0-0.87); Eosinophils % 4.1 % (0.00-10.9); Hemoglobin 9.5 GM/DL (14.0-18.0); Immature Granulocytes % 0.4 %; Immature Granulocytes Absolute 0.03 #; Lymphocytes # 1.1 10*3/uL (1.4-4.0); Lymphocytes % 13.9 % (21.2-54.2); Mean Corpuscular HGB Conc 31.7 GM/DL (32-36); Mean Corpuscular Hemoglobin 28 PG (27-34); Mean Corpuscular Volume 89.3 FL (87-102); Mean Platelet Volume 10.4 FL (9.6-12.0); Monocytes # 1.2 10*3/uL (0.11-0.8); Monocytes % 14.6 % (1.7-12.7); Neutrophils # 5.3 10*3/uL (1.4-7.4); Neutrophils % 66.5 % (38.7-73.9); Platelet Count 254 T/CUMM (130-400); Red Blood Count 3.36 MC/CUMM (3.8-5.5); Red Cell Distribution Width 18.7 % (9.3-17.3)
[2018-02-10 07:37] LABS: Albumin 1.8 G/DL (3.4-5.0); Bilirubin,Total 0.7 MG/DL (0.2-1.0); Calcium 7.9 MG/DL (8.5-10.1); Osmolality,Calculated 283.1 MOS/KG (273-304); Potassium 4.2 MMOL/L (3.5-5.1); Total Protein 6.8 G/DL (6.4-8.3)
[2018-02-10] MEDS: VANCOMYCIN INJ 1,750 MG in SODIUM CHLORIDE 0.9% 500 ML IV SCH (08:09)
[2018-02-10] MEDS: metFORMIN 500 MG TABLET PO SCH ×2 (08:10→17:09)
[2018-02-10] MEDS: DOCUSATE SODIUM 100 MG CAPSULE PO SCH ×2 (08:10→21:58)
[2018-02-10] MEDS: FOLIC ACID 1 MG TABLET PO SCH (08:10)
[2018-02-10] MEDS: LACTULOSE 20 GM/30 ML UDCUP PO SCH ×3 (08:10→21:58)
[2018-02-10] MEDS: MORPHINE ER 30 MG TABLET PO SCH (08:10)
[2018-02-10] MEDS: DOXAZOSIN 1 MG TABLET PO SCH (08:10)
[2018-02-10] MEDS: ISOSORBIDE MONONITRATE 30 MG TABLET PO SCH (08:11)
[2018-02-10] MEDS: LOSARTAN 50 MG TABLET PO SCH (08:11)
[2018-02-10] MEDS: sitaGLIPtin 25 MG TABLET PO SCH ×2 (08:11→17:09)
[2018-02-10] MEDS: PARoxetine 20 MG TABLET PO SCH (08:12)
[2018-02-10] MEDS: ZINC OXIDE PASTE 113 GM TUBE TOP SCH ×2 (08:12→21:56)
[2018-02-10] MEDS: SPIRONOLACTONE 50 MG TABLET PO SCH ×2 (08:12→16:12)
[2018-02-10] MEDS: ENOXAPARIN 40 MG/0.4 ML SYRINGE SUBCUT SCH (08:12)
[2018-02-10] MEDS: hydroCHLOROthiazide 25 MG TABLET PO SCH (08:12)
[2018-02-10] MEDS: PANTOPRAZOLE 40 MG TABLET PO SCH (08:12)
[2018-02-10] MEDS: Enzalutamide [Xtandi] 160 MG PO SCH (17:54)
[2018-02-10] MEDS: INSULIN GLARGINE 100 UNIT/ML SUBCUT SCH (21:56)
[2018-02-10] MEDS: ATORVASTATIN 80 MG TABLET PO SCH (21:57)
[2018-02-10] MEDS: FAMOTIDINE 20 MG TABLET PO SCH (21:57)
[2018-02-10] MEDS: DONEPEZIL 5 MG TABLET PO SCH (21:57)
[2018-02-10] MEDS: MORPHINE ER 15 MG TABLET PO SCH (21:58)
[2018-02-10] MEDS: ASPIRIN EC 81 MG TABLET PO SCH (22:03)
[2018-02-10] MEDS: SODIUM CHLORIDE 0.9% 1,000 ML IV SCH (22:10)
[2018-02-11] MEDS: INSULIN LISPRO 100 UNIT/ML SUBCUT SCH ×7 (00:52→18:22)
[2018-02-11] MEDS: VANCOMYCIN INJ 1,750 MG in SODIUM CHLORIDE 0.9% 500 ML IV SCH ×2 (03:22→21:36)
[2018-02-11 07:12] LABS: Basophils # 0.1 10*3/uL (0.0-0.2); Basophils % 0.6 % (0.0-0.8); Eosinophils # 0.4 10*3/uL (0.0-0.87); Eosinophils % 4.7 % (0.00-10.9); Hematocrit 30.2 VOL% (42.0-52.0); Hemoglobin 9.6 GM/DL (14.0-18.0); Immature Granulocytes % 0.6 %; Immature Granulocytes Absolute 0.05 #; Lymphocytes # 0.9 10*3/uL (1.4-4.0); Lymphocytes % 11.5 % (21.2-54.2); Mean Corpuscular HGB Conc 31.8 GM/DL (32-36); Mean Corpuscular Hemoglobin 28 PG (27-34); Mean Corpuscular Volume 88.6 FL (87-102); Mean Platelet Volume 10.3 FL (9.6-12.0); Monocytes # 1.1 10*3/uL (0.11-0.8); Neutrophils # 5.4 10*3/uL (1.4-7.4); Neutrophils % 68.6 % (38.7-73.9); Platelet Count 248 T/CUMM (130-400); Red Blood Count 3.41 MC/CUMM (3.8-5.5); Red Cell Distribution Width 19.1 % (9.3-17.3); White Blood Count 7.9 T/CUMM (4-12)
[2018-02-11 07:42] LABS: Albumin 1.8 G/DL (3.4-5.0); Bilirubin,Total 0.4 MG/DL (0.2-1.0); Calcium 7.9 MG/DL (8.5-10.1); Osmolality,Calculated 280.3 MOS/KG (273-304); Potassium 4.1 MMOL/L (3.5-5.1)
[2018-02-11] MEDS: LEVOTHYROXINE 50 MCG TABLET PO SCH (07:52)
[2018-02-11] MEDS: metFORMIN 500 MG TABLET PO SCH ×2 (09:09→16:54)
[2018-02-11] MEDS: LACTULOSE 20 GM/30 ML UDCUP PO SCH ×3 (09:10→21:35)
[2018-02-11] MEDS: DOXAZOSIN 1 MG TABLET PO SCH (09:10)
[2018-02-11] MEDS: SPIRONOLACTONE 50 MG TABLET PO SCH ×2 (09:10→15:29)
[2018-02-11] MEDS: sitaGLIPtin 25 MG TABLET PO SCH ×2 (09:10→16:54)
[2018-02-11] MEDS: ZINC OXIDE PASTE 113 GM TUBE TOP SCH ×2 (09:11→21:35)
[2018-02-11] MEDS: LOSARTAN 50 MG TABLET PO SCH (09:11)
[2018-02-11] MEDS: DOCUSATE SODIUM 100 MG CAPSULE PO SCH ×2 (09:11→21:35)
[2018-02-11] MEDS: FOLIC ACID 1 MG TABLET PO SCH (09:11)
[2018-02-11] MEDS: MORPHINE ER 30 MG TABLET PO SCH (09:12)
[2018-02-11] MEDS: hydroCHLOROthiazide 25 MG TABLET PO SCH (09:12)
[2018-02-11] MEDS: ISOSORBIDE MONONITRATE 30 MG TABLET PO SCH (09:12)
[2018-02-11] MEDS: PANTOPRAZOLE 40 MG TABLET PO SCH (09:12)
[2018-02-11] MEDS: ENOXAPARIN 40 MG/0.4 ML SYRINGE SUBCUT SCH (09:12)
[2018-02-11] MEDS: PARoxetine 20 MG TABLET PO SCH (09:12)
[2018-02-11 14:15] LABS: Mitochondrial Antibody (M2) <0.1 U
[2018-02-11] MEDS: Enzalutamide [Xtandi] 160 MG PO SCH (18:22)
[2018-02-11] MEDS: ASPIRIN EC 81 MG TABLET PO SCH (21:35)
[2018-02-11] MEDS: DONEPEZIL 5 MG TABLET PO SCH (21:35)
[2018-02-11] MEDS: ATORVASTATIN 80 MG TABLET PO SCH (21:36)
[2018-02-11] MEDS: MORPHINE ER 15 MG TABLET PO SCH (21:36)
[2018-02-11] MEDS: FAMOTIDINE 20 MG TABLET PO SCH (21:36)
[2018-02-11] MEDS: INSULIN GLARGINE 100 UNIT/ML SUBCUT SCH (22:37)
[2018-02-11] MEDS: SODIUM CHLORIDE 0.9% 1,000 ML IV SCH (23:18)
[2018-02-12] MEDS: INSULIN LISPRO 100 UNIT/ML SUBCUT SCH ×5 (00:41→11:43)
[2018-02-12] MEDS: LEVOTHYROXINE 50 MCG TABLET PO SCH (06:12)
[2018-02-12 06:48] LABS: Albumin 1.9 G/DL (3.4-5.0); Bilirubin,Total 0.6 MG/DL (0.2-1.0); Calcium 7.8 MG/DL (8.5-10.1); Osmolality,Calculated 277.5 MOS/KG (273-304); Potassium 4.4 MMOL/L (3.5-5.1); Total Protein 7.2 G/DL (6.4-8.3)
[2018-02-12] MEDS: DOXAZOSIN 1 MG TABLET PO SCH (08:06)
[2018-02-12] MEDS: PARoxetine 20 MG TABLET PO SCH (08:06)
[2018-02-12] MEDS: ENOXAPARIN 40 MG/0.4 ML SYRINGE SUBCUT SCH (08:06)
[2018-02-12] MEDS: LACTULOSE 20 GM/30 ML UDCUP PO SCH ×2 (08:06→16:46)
[2018-02-12] MEDS: metFORMIN 500 MG TABLET PO SCH (08:06)
[2018-02-12] MEDS: FOLIC ACID 1 MG TABLET PO SCH (08:06)
[2018-02-12] MEDS: SPIRONOLACTONE 50 MG TABLET PO SCH (08:06)
[2018-02-12] MEDS: hydroCHLOROthiazide 25 MG TABLET PO SCH (08:06)
[2018-02-12] MEDS: sitaGLIPtin 25 MG TABLET PO SCH (08:06)
[2018-02-12] MEDS: ISOSORBIDE MONONITRATE 30 MG TABLET PO SCH (08:07)
[2018-02-12] MEDS: MORPHINE ER 30 MG TABLET PO SCH (08:07)
[2018-02-12] MEDS: DOCUSATE SODIUM 100 MG CAPSULE PO SCH (08:07)
[2018-02-12] MEDS: LOSARTAN 50 MG TABLET PO SCH (08:07)
[2018-02-12] MEDS: PANTOPRAZOLE 40 MG TABLET PO SCH (08:08)
[2018-02-12] MEDS: ZINC OXIDE PASTE 113 GM TUBE TOP SCH (08:08)
[2018-02-12 16:17] VITALS: BP 114/55
[2018-02-12] MEDS ORDERED: VANCOMYCIN INJ 1,500 MG in SODIUM CHLORIDE 0.9% 500 ML IV SCH (21:00)
== END 2018-02-12 16:45 | disposition home health service (06) | DRG 603 ==
LOC: N.ED 19:51 → SUATTDRO 22:58 → N.EDINP 22:58 → N.2E 23:56
PROVIDERS: ADMIT Hospitalist; ATTEND Internal Medicine

== ENCOUNTER 2018-02-28 09:16 | Inpatient (IN) ==
[2018-03-03 13:15] VITALS: BP 123/70
== END 2018-03-03 13:15 | disposition home health service (06) | DRG 432 ==
LOC: N.ED 09:16 → N.EDINP 13:51 → SUATTDRO 13:51 → N.5E 15:42
PROVIDERS: ADMIT Physician Assistant; ATTEND Internal Medicine

== ENCOUNTER 2018-03-23 13:19 | Inpatient (IN) ==
[2018-03-23 18:16] LABS: Basophils % 0.2 % (0.0-0.8); Eosinophils # 0.1 10*3/uL (0.0-0.87); Eosinophils % 0.5 % (0.00-10.9); Hematocrit 32.1 VOL% (42.0-52.0); Hemoglobin 10.4 GM/DL (14.0-18.0); Immature Granulocytes % 0.5 %; Immature Granulocytes Absolute 0.08 #; Lymphocytes # 0.7 10*3/uL (1.4-4.0); Lymphocytes % 4.8 % (21.2-54.2); Mean Corpuscular HGB Conc 32.4 GM/DL (32-36); Mean Corpuscular Hemoglobin 28 PG (27-34); Mean Platelet Volume 9.9 FL (9.6-12.0); Monocytes # 2.3 10*3/uL (0.11-0.8); Monocytes % 15.6 % (1.7-12.7); Neutrophils # 11.6 10*3/uL (1.4-7.4); Neutrophils % 78.4 % (38.7-73.9); Platelet Count 352 T/CUMM (130-400); Red Blood Count 3.69 MC/CUMM (3.8-5.5); Red Cell Distribution Width 20.4 % (9.3-17.3); White Blood Count 14.8 T/CUMM (4-12)
[2018-03-23 18:28] LABS: Lactic Acid 6.5 MMOL/L (0.4-2.0)
[2018-03-23 18:37] LABS: Alanine Aminotransferase 37 U/L (16-61); Albumin 1.8 G/DL (3.4-5.0); Alkaline Phosphatase 317 U/L (45-117); Aspartate Amino Transferase 182 U/L (0-37); Blood Urea Nitrogen 40 MG/DL (7-18); Calcium 8.7 MG/DL (8.5-10.1); Glucose 62 MG/DL (74-106); Potassium 4.6 MMOL/L (3.5-5.1); Sodium 136 MMOL/L (136-145); Total Protein 8.4 G/DL (6.4-8.3)
[2018-03-23 19:02] LABS: Lymphocytes 2 % (20-55); Platelet Estimate Normal; Segmented Neutrophils 92 % (50-85); Total Cells Counted 100
[2018-03-23] MEDS ORDERED: DEXTROSE 50% 25 GM/50 ML VIAL IV STA (19:44)
[2018-03-23] MEDS ORDERED: CEFTAROLINE 600 MG in SODIUM CHLORIDE 0.9% 100 ML IV STA (19:46)
[2018-03-23 20:07] LABS: PT Patient Result 10.7 SECS
[2018-03-23 20:16] LABS: Amylase 36 U/L (25-115); Troponin I 0.021 NG/ML (0.00-0.045)
[2018-03-23] MEDS ORDERED: DEXTROSE 50% 25 GM/50 ML SYRINGE IV STA (20:30)
[2018-03-23 21:23] LABS: ABG Base Excess -2.9 MMOL/L (-2.5-2.5); ABG HCO3 21.9 MMOL/L (20-26); ABG Oxygen Saturation 94.7 % (95-100); ABG PCO2 29.3 MM HG (35-48); ABG PH 7.447 (7.35-7.45); ABG PO2 77.3 MM HG (80-95); ABG TCO2 18.4 MMOL/L (23-27); Pt O2 Delivery Device Room Air
[2018-03-23] MEDS ORDERED: GLUCAGON 1 MG VIAL IM PRN (21:38)
[2018-03-23] MEDS ORDERED: DEXTROSE 50% 25 GM/50 ML VIAL IV PRN (21:38)
[2018-03-23] MEDS ORDERED: LACTULOSE 20 GM/30 ML UDCUP PO PRN (21:45)
[2018-03-23 21:49] LABS: Partial Thromboplastin Time 27.7 SECS (0-40)
[2018-03-23 21:59] LABS: Albumin 1.5 G/DL (3.4-5.0); Bilirubin,Total 0.8 MG/DL (0.2-1.0); Calcium 8.4 MG/DL (8.5-10.1); Potassium 4.9 MMOL/L (3.5-5.1); Total Protein 7.4 G/DL (6.4-8.3)
[2018-03-23 22:08] LABS: Apearance,Urine Slightly Hazy (Clear); Bacteria,Urine Occasional /HPF (Few); Bilirubin,Urine Small mg/dL (Negative); Blood, Urine Negative (Negative); Glucose,Urine (UA) Negative (Negative); Hyaline Casts,Urine 22 /LPF (0-3); Ketones,Urine 5 mg/dL (Negative); Mucus,Urine Occasional /LPF (Occasional); Nitrite,Urine Negative (Negative); Protein,Urine 30 MG/DL; RBC,Urine 3 /HPF (0-4); Squamous Epithelial Cell,Urine Occasional /HPF (0-10); Urine Color Amber (Yellow); WBC,Urine 4 /HPF (0-6)
[2018-03-23 22:42] LABS: Thyroid Stimulating Hormone 3.84 uIU/ml (0.358-3.74)
[2018-03-24] MEDS: INSULIN LISPRO 100 UNIT/ML SUBCUT SCH ×6 (00:02→22:03)
[2018-03-24] MEDS: HEPARIN 5,000 UNIT/1 ML VIAL SUBCUT SCH ×2 (00:33→09:52)
[2018-03-24] MEDS: PIPERACILLIN/TAZOBACTAM 3,375 MG in SODIUM CHLORIDE 0.9% 100 ML IV SCH ×2 (00:35→09:53)
[2018-03-24] MEDS ORDERED: VANCOMYCIN INJ 1,500 MG in SODIUM CHLORIDE 0.9% 500 ML IV SCH (01:00)
[2018-03-24] MEDS: LEVOTHYROXINE 50 MCG TABLET PO SCH (06:02)
[2018-03-24 06:27] LABS: Basophils % 0.3 % (0.0-0.8); Eosinophils % 0.1 % (0.00-10.9); Hematocrit 27.7 VOL% (42.0-52.0); Hemoglobin 9.3 GM/DL (14.0-18.0); Immature Granulocytes % 0.9 %; Immature Granulocytes Absolute 0.13 #; Lymphocytes # 0.9 10*3/uL (1.4-4.0); Mean Corpuscular HGB Conc 33.6 GM/DL (32-36); Mean Corpuscular Hemoglobin 29 PG (27-34); Mean Platelet Volume 10.2 FL (9.6-12.0); Monocytes # 2.4 10*3/uL (0.11-0.8); Monocytes % 16.5 % (1.7-12.7); Neutrophils # 11.3 10*3/uL (1.4-7.4); Neutrophils % 76.2 % (38.7-73.9); Platelet Count 308 T/CUMM (130-400); Red Blood Count 3.26 MC/CUMM (3.8-5.5); Red Cell Distribution Width 19.9 % (9.3-17.3); White Blood Count 14.8 T/CUMM (4-12)
[2018-03-24 06:41] LABS: Albumin 1.6 G/DL (3.4-5.0); Bilirubin,Total 1.2 MG/DL (0.2-1.0); Calcium 8.6 MG/DL (8.5-10.1); Potassium 4.9 MMOL/L (3.5-5.1); Total Protein 7.5 G/DL (6.4-8.3)
[2018-03-24 06:57] LABS: Hypochromasia 1+; Ovalocytes Slight; Platelet Estimate Adequate
[2018-03-24] MEDS ORDERED: LACTULOSE 20 GM/30 ML UDCUP PO SCH (09:00)
[2018-03-24] MEDS ORDERED: hydroCHLOROthiazide 12.5 MG CAPSULE PO SCH (09:00)
[2018-03-24] MEDS ORDERED: NON-FORMULARY MEDICATION (Enzalutamide [Xtandi] 160 MG) PO SCH (09:00)
[2018-03-24] MEDS: SODIUM CHLORIDE 0.9% 1,000 ML IV SCH ×2 (10:55→23:03)
[2018-03-24] MEDS: CEFTAROLINE 600 MG in SODIUM CHLORIDE 0.9% 100 ML IV SCH ×2 (10:55→23:02)
[2018-03-24] MEDS: ISOSORBIDE MONONITRATE 30 MG TABLET PO SCH (10:56)
[2018-03-24] MEDS: LOSARTAN 50 MG TABLET PO SCH (10:56)
[2018-03-24] MEDS: FOLIC ACID 1 MG TABLET PO SCH (10:56)
[2018-03-24] MEDS: SPIRONOLACTONE 50 MG TABLET PO SCH ×2 (10:56→23:02)
[2018-03-24] MEDS: PARoxetine 20 MG TABLET PO SCH (10:56)
[2018-03-24] MEDS: DOXAZOSIN 1 MG TABLET PO SCH (10:56)
[2018-03-24] MEDS: PANTOPRAZOLE 40 MG TABLET PO SCH (10:57)
[2018-03-24] MEDS: RIFAXIMIN 550 MG TABLET PO SCH ×3 (10:57→23:01)
[2018-03-24] MEDS: LACTULOSE 20 GM/30 ML UDCUP PO SCH ×2 (16:12→23:02)
[2018-03-24] MEDS ORDERED: ATORVASTATIN 80 MG TABLET PO SCH (21:00)
[2018-03-24] MEDS: ASPIRIN EC 81 MG TABLET PO SCH (23:02)
[2018-03-24] MEDS: DONEPEZIL 5 MG TABLET PO SCH (23:02)
[2018-03-25] MEDS: INSULIN LISPRO 100 UNIT/ML SUBCUT SCH ×6 (00:13→21:36)
[2018-03-25 05:57] LABS: Basophils % 0.2 % (0.0-0.8); Eosinophils % 0.1 % (0.00-10.9); Hemoglobin 8.8 GM/DL (14.0-18.0); Immature Granulocytes % 0.8 %; Immature Granulocytes Absolute 0.14 #; Lymphocytes # 0.8 10*3/uL (1.4-4.0); Lymphocytes % 5.1 % (21.2-54.2); Mean Corpuscular HGB Conc 33.8 GM/DL (32-36); Mean Corpuscular Hemoglobin 29 PG (27-34); Mean Corpuscular Volume 84.7 FL (87-102); Mean Platelet Volume 10.3 FL (9.6-12.0); Monocytes # 2.2 10*3/uL (0.11-0.8); Monocytes % 13.6 % (1.7-12.7); Neutrophils # 13.2 10*3/uL (1.4-7.4); Neutrophils % 80.2 % (38.7-73.9); Platelet Count 295 T/CUMM (130-400); Red Blood Count 3.07 MC/CUMM (3.8-5.5); Red Cell Distribution Width 20.2 % (9.3-17.3); White Blood Count 16.5 T/CUMM (4-12)
[2018-03-25] MEDS: LEVOTHYROXINE 50 MCG TABLET PO SCH (06:35)
[2018-03-25] MEDS: SODIUM CHLORIDE 0.9% 1,000 ML IV SCH ×3 (06:36→18:42)
[2018-03-25 06:47] LABS: Albumin 1.4 G/DL (3.4-5.0); Bilirubin,Total 1.1 MG/DL (0.2-1.0); Calcium 8.1 MG/DL (8.5-10.1); Osmolality,Calculated 299.7 MOS/KG (273-304); Potassium 4.3 MMOL/L (3.5-5.1); Total Protein 6.8 G/DL (6.4-8.3)
[2018-03-25] MEDS: CEFTAROLINE 600 MG in SODIUM CHLORIDE 0.9% 100 ML IV SCH ×2 (09:30→21:38)
[2018-03-25] MEDS: LACTULOSE 20 GM/30 ML UDCUP PO SCH ×3 (09:33→21:40)
[2018-03-25] MEDS: LOSARTAN 50 MG TABLET PO SCH (09:33)
[2018-03-25] MEDS: RIFAXIMIN 550 MG TABLET PO SCH ×3 (09:33→21:38)
[2018-03-25] MEDS: ISOSORBIDE MONONITRATE 30 MG TABLET PO SCH (09:34)
[2018-03-25] MEDS: SPIRONOLACTONE 50 MG TABLET PO SCH ×2 (09:34→21:40)
[2018-03-25] MEDS: DOXAZOSIN 1 MG TABLET PO SCH (09:34)
[2018-03-25] MEDS: PANTOPRAZOLE 40 MG TABLET PO SCH (09:34)
[2018-03-25] MEDS: PARoxetine 20 MG TABLET PO SCH (09:34)
[2018-03-25] MEDS: FOLIC ACID 1 MG TABLET PO SCH (09:34)
[2018-03-25] MEDS: MORPHINE ER 15 MG TABLET PO SCH ×2 (13:39→21:39)
[2018-03-25] MEDS ORDERED: BELLADONNA/OPIUM 30 MG SUPP RECTAL PRN (18:50)
[2018-03-25] MEDS: ASPIRIN EC 81 MG TABLET PO SCH (21:40)
[2018-03-25] MEDS: DONEPEZIL 5 MG TABLET PO SCH (21:40)
[2018-03-26] MEDS: INSULIN LISPRO 100 UNIT/ML SUBCUT SCH ×6 (01:22→20:25)
[2018-03-26] MEDS: SODIUM CHLORIDE 0.9% 1,000 ML IV SCH ×2 (04:40→15:14)
[2018-03-26 06:20] LABS: Basophils % 0.3 % (0.0-0.8); Eosinophils # 0.2 10*3/uL (0.0-0.87); Eosinophils % 1.5 % (0.00-10.9); Hematocrit 26.5 VOL% (42.0-52.0); Hemoglobin 8.6 GM/DL (14.0-18.0); Immature Granulocytes % 0.3 %; Immature Granulocytes Absolute 0.04 #; Lymphocytes # 1.1 10*3/uL (1.4-4.0); Lymphocytes % 8.1 % (21.2-54.2); Mean Corpuscular HGB Conc 32.5 GM/DL (32-36); Mean Corpuscular Hemoglobin 28 PG (27-34); Mean Corpuscular Volume 86.6 FL (87-102); Mean Platelet Volume 10.3 FL (9.6-12.0); Monocytes # 1.9 10*3/uL (0.11-0.8); Neutrophils # 10.2 10*3/uL (1.4-7.4); Neutrophils % 75.8 % (38.7-73.9); Platelet Count 286 T/CUMM (130-400); Red Blood Count 3.06 MC/CUMM (3.8-5.5); Red Cell Distribution Width 20.6 % (9.3-17.3); White Blood Count 13.5 T/CUMM (4-12)
[2018-03-26 06:42] LABS: Calcium 7.9 MG/DL (8.5-10.1); Osmolality,Calculated 307.7 MOS/KG (273-304); Potassium 3.5 MMOL/L (3.5-5.1)
[2018-03-26] MEDS: LEVOTHYROXINE 50 MCG TABLET PO SCH (07:01)
[2018-03-26] MEDS: LACTULOSE 20 GM/30 ML UDCUP PO SCH ×4 (09:38→21:57)
[2018-03-26] MEDS: RIFAXIMIN 550 MG TABLET PO SCH ×3 (09:39→21:56)
[2018-03-26] MEDS: PARoxetine 20 MG TABLET PO SCH (09:39)
[2018-03-26] MEDS: ISOSORBIDE MONONITRATE 30 MG TABLET PO SCH (09:39)
[2018-03-26] MEDS: DOXAZOSIN 1 MG TABLET PO SCH (09:39)
[2018-03-26] MEDS: LOSARTAN 50 MG TABLET PO SCH (09:39)
[2018-03-26] MEDS: SPIRONOLACTONE 50 MG TABLET PO SCH ×2 (09:40→21:57)
[2018-03-26] MEDS: FOLIC ACID 1 MG TABLET PO SCH (09:40)
[2018-03-26] MEDS: PANTOPRAZOLE 40 MG TABLET PO SCH (09:40)
[2018-03-26] MEDS: MORPHINE ER 15 MG TABLET PO SCH ×2 (09:40→21:57)
[2018-03-26] MEDS: CEFTAROLINE 600 MG in SODIUM CHLORIDE 0.9% 100 ML IV SCH ×2 (10:15→21:58)
[2018-03-26] MEDS: DONEPEZIL 5 MG TABLET PO SCH (21:57)
[2018-03-26] MEDS: ASPIRIN EC 81 MG TABLET PO SCH (21:57)
[2018-03-27] MEDS: INSULIN LISPRO 100 UNIT/ML SUBCUT SCH ×4 (00:27→13:37)
[2018-03-27] MEDS: SODIUM CHLORIDE 0.9% 1,000 ML IV SCH (02:44)
[2018-03-27 04:33] LABS: Basophils # 0.1 10*3/uL (0.0-0.2); Basophils % 0.5 % (0.0-0.8); Eosinophils # 0.5 10*3/uL (0.0-0.87); Eosinophils % 4.7 % (0.00-10.9); Hematocrit 26.4 VOL% (42.0-52.0); Hemoglobin 8.8 GM/DL (14.0-18.0); Immature Granulocytes % 0.5 %; Immature Granulocytes Absolute 0.05 #; Lymphocytes % 9.4 % (21.2-54.2); Mean Corpuscular HGB Conc 33.3 GM/DL (32-36); Mean Corpuscular Hemoglobin 28 PG (27-34); Mean Corpuscular Volume 84.9 FL (87-102); Mean Platelet Volume 9.8 FL (9.6-12.0); Monocytes # 1.6 10*3/uL (0.11-0.8); Monocytes % 14.5 % (1.7-12.7); Neutrophils # 7.5 10*3/uL (1.4-7.4); Neutrophils % 70.4 % (38.7-73.9); Platelet Count 275 T/CUMM (130-400); Red Blood Count 3.11 MC/CUMM (3.8-5.5); Red Cell Distribution Width 20.6 % (9.3-17.3); White Blood Count 10.7 T/CUMM (4-12)
[2018-03-27 04:52] LABS: Albumin 1.3 G/DL (3.4-5.0); Calcium 7.7 MG/DL (8.5-10.1); Osmolality,Calculated 305.7 MOS/KG (273-304); Potassium 3.7 MMOL/L (3.5-5.1); Total Protein 6.8 G/DL (6.4-8.3)
[2018-03-27] MEDS: LEVOTHYROXINE 50 MCG TABLET PO SCH (06:18)
[2018-03-27] MEDS: PANTOPRAZOLE 40 MG TABLET PO SCH (11:02)
[2018-03-27] MEDS: LOSARTAN 50 MG TABLET PO SCH (11:02)
[2018-03-27] MEDS: PARoxetine 20 MG TABLET PO SCH (11:02)
[2018-03-27] MEDS: SPIRONOLACTONE 50 MG TABLET PO SCH (11:03)
[2018-03-27] MEDS: DOXAZOSIN 1 MG TABLET PO SCH (11:04)
[2018-03-27] MEDS: ISOSORBIDE MONONITRATE 30 MG TABLET PO SCH (11:04)
[2018-03-27] MEDS: FOLIC ACID 1 MG TABLET PO SCH (11:05)
[2018-03-27] MEDS: RIFAXIMIN 550 MG TABLET PO SCH (11:05)
[2018-03-27] MEDS: LACTULOSE 20 GM/30 ML UDCUP PO SCH (11:07)
[2018-03-27] MEDS: MORPHINE ER 15 MG TABLET PO SCH (11:07)
[2018-03-27] MEDS: CEFTAROLINE 600 MG in SODIUM CHLORIDE 0.9% 100 ML IV SCH (11:10)
[2018-03-27 12:44] VITALS: BP 128/69
== END 2018-03-27 14:16 | disposition hospice, home (50) | DRG 602 ==
LOC: N.ED 13:19 → N.EDINP 21:38 → N.3E 23:43
PROVIDERS: ADMIT Internal Medicine; ATTEND Internal Medicine